=== PATIENT | male | born 1950 | race Caucasian/White ===

== ENCOUNTER 2020-06-16 02:17 | Emergency (ER) | payer MEDICARE, SELFPAY ==
--- NOTE | ~2020-06-16 | CT_ITS ---
EXAMINATION: CT abdomen pelvis w con INDICATION: Upper abdominal pain TECHNIQUE: Computed tomographic images of the abdomen and pelvis were obtained after the administrati on of 100 cc of Omnipaque 350 intravenous contrast. The dose-length product (DLP) was 463.41 mGy-cm. Automated exposure control and iterative reconstruction technique were employed. COMPARISON: 05/29/2017 FINDINGS: Minimal dependent atelectasis is present in the lung bases. The heart size is normal. The l iver, spleen, pancreas, and adrenal glands are normal. Stones are present in the nondistended gallbla dder. The left kidney is unremarkable. The a cyst of the right kidney measures 1.9 cm. There is calci fied atherosclerosis of the aorta and many of the other arteries. No pathologically enlarged abdomina l or pelvic lymph nodes are identified. There is no free intraperitoneal gas or evidence of bowel obs truction. There is mild lumbar spondylosis. There is a tiny fat-containing umbilical hernia. There is moderate enlargement of the prostate. The appendix is normal. IMPRESSION: 1. No CT correlate for the patient's symptoms. 2. Cholelithiasis without evidence of cholecystitis. Reviewed, dictated and finalized at location A. MENDER
[2020-06-16 02:19] VITALS: BP 125/75; PULSE 78; RESP 20; TEMP 36.8; O2SAT 99
[2020-06-16 02:34] VITALS: BP 117/74; PULSE 80; RESP 17; O2SAT 98
--- NOTE | 2020-06-16 02:42 | ECG_ITS ---
Measurements Intervals [place] Rate: 77 P: 43 DE: 153 QRS: 63 QRSD: 99 T: -9 QT: 404 QTc: 458 Interpretive Statements SINUS RHYTHM LOW QRS VOLTAGE IN LIMB LEADS BORDERLINE ST-T WAVE ABNORMALITY- INFERIOR LEADS BORDERLINE ECG Electronically Signed On 06-16-2020 7:05:59 BIOMEDICAL EQUIPMENT TECHNICIAN by Tiburcio Littlejohn D.O.
--- NOTE | 2020-06-16 02:45 | ED.ABDPAIN ---
HPI - Abdominal Pain General Chief Complaint: Abdominal Pain Stated Complaint: upper abd/chest pain Time Seen by Provider: 06/16/20 02:21 Source: patient Mode of arrival: ambulatory Limitations: no limitations History of Present Illness HPI narrative: This patient is a 70 year old male with history of HTN, CAD s/p CABG who presents for evaluation of epigastric abdominal pain. He states this pain has been constant for 2 days but it has gradually worsened. His states he had a cheese burger tonight and his pain has gotten worse since then. He states he took 1 SL nitroglycerin without relief . He states he does not have chest pain but since he wasn't sure he took nitro glycerin. He reports 5 years ago he was have abdominal pain with chest pain and he was found to have a heart attack. HE also reports he was told he has a poor functioning gallbladder. HE denies associated fever, chills, nausea, vomiting or diarrhea. HE also denies dyspnea or chest pain. He also denies having exertional symptoms. HE has not tried anything else for his pain. His pain is 7/10. Radiation: none Migration to: no migration Related Data Allergies Allergy/AdvReac Type Severity Reaction Status Date / Time cefaclor Allergy Unknown Hives Verified 06/16/20 02:25 nortriptyline Allergy Unknown Hives Verified 06/16/20 02:25 Review of Systems Review of Systems: All systems reviewed & are unremarkable except as noted in HPI and below Constitutional: Constitutional: Denies chills and Denies fever(s) Cardiovascular: Cardiovascular: Denies chest pain and Denies radiating jaw, neck or arm pain Respiratory: Respiratory: Denies cough, Denies dyspnea and Denies wheezing Gastrointestinal: Gastrointestinal: Reports abdominal pain, Denies nausea and Denies vomiting Musculoskeletal: Musculoskeletal: Denies back pain COUNTS INCLUDE 234 BEDS AT THE [facility] Past Medical History Medical History (Updated 06/16/20 @ 05:27 by Mya Greer MD) CAD (coronary artery disease) Hypertension Myocardial infarction Surgical History Surgical History (Updated 06/16/20 @ 02:49 by Mya Greer MD) Hx of CABG Family History Family History (Updated 01/29/14 @ 07:13 by DOCTOR UNKNOWN) Father Family history of coronary artery disease Mother Family history of coronary artery disease Social History Social History Smoking status: Never smoker Alcohol intake: never Gender identity (if verbalized by the patient): Male Sexual Orientation (if Verbalized by the Patient): Straight or Heterosexual Exam Narrative: Exam Narrative: GENERAL: Well-appearing, well-nourished, and in no acute distress. HEAD: Normocephalic, atraumatic EYES: PERRLA and EOMI, conjunctiva clear without discharge E THROAT:Mucous membranes moist, Oropharynx normal without erythema, exudate, peritonsillar swelling or fluctuance NECK: Supple, without lymphadenopathy or mass RESPIRATORY: No respiratory distress, Airway patent, Respirations non-labored, Clear to auscultation without rales, rhonchi or wheeze HEART: Regular rate and rhythm. No murmur heard. Normal peripheral pulses. ABDOMEN: Soft, RUQ, epigastric, nondistended, normal active bowel sounds. No masses. No rebound or guarding, No organomegaly. EXTREMITIES: No edema, normal strength with full range of motion. SKIN: Warm, dry, normal color without rash NEURO: Alert and oriented x3. CN 2-12 grossly intact. No focal deficits. PSYCH: Normal mood and affect. Course Reevaluation(s) Reevaluation #1: PAtient reports his pain is still only 1/10. I reviewed CT results showing gallstones but no inflammation. I also discussed enlarged prostate. I discussed that he will need to eat low fat diet. He has mild leukocytosis so will place on antibiotics. I discussed he will need to follow up with surgeon and GI. He denies melena. Date: 06/16/20 Time: 05:20 Vital Signs Vital signs: Vital Signs Temperature 98.2 F 06/16/20 02:19 Pulse Rate 78 06/16
[2020-06-16] MEDS: MORPHINE SULFATE (*CRX) 4 MG/ML INJ 6 MG IV PUSH (02:53)
[2020-06-16] MEDS: ONDANSETRON INJ 4 MG/2 ML VIAL IV PUSH (02:54)
[2020-06-16 03:15] LABS: Basophils Absolute Auto 0.1 K/mm3 (0.0-0.1); Basophils Percent Auto 0.7 % (0.2-1.2); Eosinophils Absolute Auto 0.5 K/mm3 (0-0.3); Eosinophils Percent Auto 3.9 % (0-4.4); Hematocrit 47.2 % (42.0-52.0); Hemoglobin 15.9 g/dL (14.0-18.0); Immature Granulocyte Absolute 0.05 K/mm3 (0.00-0.031); Immature Granulocyte Percent A 0.4 % (0-0.5); Lymphocytes Absolute Auto 3.41 K/mm3 (0.9-3.2); Lymphocytes Percent Auto 28.2 % (18.3-44.2); Mean Corpuscular HGB Conc 33.7 g/dl (32-36); Mean Corpuscular Hemoglobin 27.9 pg (26-34); Mean Platelet Volume 10.7 fl (7.4-10.4); Monocytes Absolute Auto 0.9 K/mm3 (0.1-0.6); Monocytes Percent Auto 7.6 % (2.6-8.5); Neutrophils Absolute Auto 7.2 K/mm3 (1.3-6.7); Neutrophils Percent Auto 59.2 % (45.5-73.1); Platelet Count Result 268 k/mm3 (150-375); Red Blood Count 5.69 M/mm3 (4.6-6.20); Red Cell Distribution Width 13.6 % (11.5-14.5); White Blood Count 12.1 K/mm3 (4.5-10.0)
[2020-06-16 03:21] LABS: Add Urine Microscopic? YES; Appearance Urine Clear (Clear); Bilirubin Urine Negative (Negative); Blood Urine 1+ (Negative); Calcium Oxalate Crystals Urine Present /hpf; Color Urine Yellow (Yellow); Glucose Urine UA Negative (Negative); Ketones Urine Negative (Negative); Leukocyte Esterase Ur Negative LEU/UL (Negative); Mucus Urine Heavy /lpf; Nitrate Urine Negative (Negative); Protein Urine Negative (Negative); Specific Grav Ur 1.028 (1.001-1.035); Urobilinogen Urine Negative mg/dL (<2.0); WBC Urine 0-3 /hpf
[2020-06-16 03:28] LABS: Alanine Aminotransferase 27 U/L (4-50); Alkaline Phosphatase 101 U/L (38-126); Anion Gap 5 mmol/L (8-16); Aspartate Amino Transferase 33 U/L (17-59); Bilirubin,Total 0.5 mg/dL (0.2-1.3); Blood Urea Nitrogen 22 mg/dL (9-20); Calcium 8.8 mg/dL (8.4-10.2); Carbon Dioxide 28 mmol/L (22-30); Chloride 106 mmol/L (98-107); Estimated CRCL calculation 48 ml/min; Estimated Glomerular Filt Rate 60; Glucose 108 mg/dL (75-110); Lipase 166 U/L (23-300); Potassium 4.1 mmol/L (3.4-5.0); Sodium 139 mmol/L (137-145)
[2020-06-16 03:43] LABS: Troponin I < 0.012 ng/mL (0.000-0.034)
[2020-06-16 05:48] VITALS: BP 108/69; PULSE 71; RESP 15; O2SAT 95
== END 2020-06-16 05:50 | disposition home or self-care (01) ==
PROVIDERS: Emergency Provider General Practice; PCP Family Medicine
DX: K80.20 Calculus of gallbladder without cholecystitis without obstruction (principal); I10 Essential (primary) hypertension; I25.10 Atherosclerotic heart disease of native coronary artery without angina pectoris; Z95.1 Presence of aortocoronary bypass graft; I25.2 Old myocardial infarction; R94.31 Abnormal electrocardiogram [ECG] [EKG]
CPT/HCPCS: 36415; 74177; 80053; 81001; 83690; 84484; 85025; 93005; 96374; 96375; 99284; J2270; J2405; Q9967

== ENCOUNTER 2020-09-26 18:13 | Emergency (ER) | payer MEDICARE, SELFPAY ==
--- NOTE | ~2020-09-26 | XR_ITS ---
EXAMINATION: XR chest 2V 09/26/2020 19:12 INDICATION: Epigastric pain with shortness of breath PROCEDURE: PA and lateral views of the chest COMPARISON: Comparison to multiple prior studies sequentially, with oldest reviewed study dated 01/2016. FINDINGS: The lungs are clear. The cardiomediastinal silhouette is within normal limits. There are no pleural effusions. There is no pneumothorax suspected. Status post median sternotomy for CABG. IMPRESSION: 1: NO ACUTE CARDIOPULMONARY DISEASE. Reviewed, dictated and finalized at location A.
--- NOTE | 2020-09-26 18:13 | ECG_ITS ---
Measurements Intervals [place] Rate: 134 P: [place]: 0 QRS: 70 QRSD: 83 T: -4 QT: 304 QTc: 455 Interpretive Statements ATRIAL FIBRILLATION WITH RAPID VENTRICULAR RESPONSE LOW VOLTAGE- LIMB LEADS ABNORMAL ECG Electronically Signed On 09-26-2020 20:12:35 CDT by Tiburcio Littlejohn D.O.
[2020-09-26 18:29] VITALS: BP 124/74; PULSE 132; RESP 18; TEMP 36.6; O2SAT 97
[2020-09-26 19:03] LABS: Basophils Absolute Auto 0.1 K/mm3 (0.0-0.1); Basophils Percent Auto 0.7 % (0.2-1.2); Eosinophils Absolute Auto 0.5 K/mm3 (0-0.3); Eosinophils Percent Auto 3.6 % (0-4.4); Hematocrit 47.3 % (42.0-52.0); Hemoglobin 15.5 g/dL (14.0-18.0); Immature Granulocyte Absolute 0.07 K/mm3 (0.00-0.031); Immature Granulocyte Percent A 0.6 % (0-0.5); Lymphocytes Absolute Auto 3.54 K/mm3 (0.9-3.2); Lymphocytes Percent Auto 28.2 % (18.3-44.2); Mean Corpuscular HGB Conc 32.8 g/dl (32-36); Mean Corpuscular Hemoglobin 27.6 pg (26-34); Mean Corpuscular Volume 84.2 fl (80-100); Mean Platelet Volume 10.4 fl (7.4-10.4); Monocytes Absolute Auto 1.3 K/mm3 (0.1-0.6); Neutrophils Absolute Auto 7.1 K/mm3 (1.3-6.7); Neutrophils Percent Auto 56.9 % (45.5-73.1); Platelet Count Result 261 k/mm3 (150-375); Red Blood Count 5.62 M/mm3 (4.6-6.20); Red Cell Distribution Width 13.7 % (11.5-14.5); White Blood Count 12.5 K/mm3 (4.5-10.0)
[2020-09-26 19:13] LABS: INR 0.9; Partial Thromboplastin Time 31.1 SECONDS (22.3-36.8); Prothrombin Time 12.8 Seconds (11.1-14.7)
[2020-09-26 19:17] LABS: Anion Gap 7 mmol/L (8-16); Blood Urea Nitrogen 23 mg/dL (9-20); Calcium 9.1 mg/dL (8.4-10.2); Carbon Dioxide 28 mmol/L (22-30); Chloride 105 mmol/L (98-107); Estimated CRCL calculation 48 ml/min; Estimated Glomerular Filt Rate 60; Glucose 103 mg/dL (75-110); Potassium 4.1 mmol/L (3.4-5.0); Sodium 140 mmol/L (137-145)
[2020-09-26 19:23] VITALS: BP 130/75; PULSE 118; RESP 22; O2SAT 100
[2020-09-26 19:29] LABS: Troponin I < 0.012 ng/mL (0.000-0.034)
[2020-09-26] MEDS: dilTIAZem HCl INJ 25 MG/5 ML VIAL 15 MG IV PUSH (20:01)
[2020-09-26 20:05] VITALS: BP 108/69; PULSE 103; RESP 17; O2SAT 99
--- NOTE | 2020-09-26 20:18 | PC.NURSE ---
after giving pt cardizem, pt developed red splotches on his right arm that itches. notified. putting in orders for benadryl
[2020-09-26] MEDS: diphenhydrAMINE HCl INJ 50 MG/ML VIAL 25 MG IV PUSH (20:22)
--- NOTE | 2020-09-26 21:15 | ED.CHESTPAIN ---
HPI - Chest Pain General Chief Complaint: Chest Pain Stated Complaint: chest pain Time Seen by Provider: 09/26/20 19:14 History of Present Illness HPI narrative: Patient is a 70-year-old male who presents ER with chest pain. Ongoing for last 2 days. Worse with exertion. Is tightness in the center of his chest. No radiation. Does have history of MT and sees Dr. Hester. Patient is unsure if he has history of arrhythmia but was found to be in A. fib with RVR upon arrival today. No lower extremity swelling. He is not on any blood thinners and only takes a baby aspirin. Patient denies any increased leg swelling or orthopnea. Patient has mild shortness of breath with exertion as well. Related Data Allergies Allergy/AdvReac Type Severity Reaction Status Date / Time cefaclor Allergy Unknown Hives Verified 06/16/20 02:25 nortriptyline Allergy Unknown Hives Verified 06/16/20 02:25 diltiazem [From Cardizem] Allergy Hives Verified 09/26/20 20:19 Review of Systems Review of Systems: All systems reviewed & are unremarkable except as noted in HPI and below Constitutional: Constitutional: Denies chills and Denies fever(s) ENT: Denies nasal congestion and Denies sore throat Cardiovascular: Cardiovascular: Reports chest pain, Denies rapid heart rate and Denies radiating jaw, neck or arm pain Respiratory: Respiratory: Denies cough, Reports dyspnea and Denies wheezing Gastrointestinal: Gastrointestinal: Denies abdominal pain, Denies nausea and Denies vomiting PMFSH Past Medical History Medical History (Updated 09/27/20 @ 00:37 by Rajinder Martinez MD) BPH with obstruction/lower urinary tract symptoms CAD (coronary artery disease) Hypertension Hypertensive heart disease without congestive heart failure Mixed hyperlipidemia Myocardial infarction Surgical History Surgical History (Updated 08/26/20 @ 15:31 by Quirino Recio MD) History of cholecystectomy Hx of CABG Family History Family History (Updated 01/29/14 @ 07:13 by DOCTOR UNKNOWN) Father Family history of coronary artery disease Mother Family history of coronary artery disease Social History Social History Smoking status: Never smoker Alcohol intake: never Gender identity (if verbalized by the patient): Male Exam Narrative: Exam Narrative: GENERAL: Well-appearing, well-nourished, and in no acute distress. HEAD: Normocephalic, atraumatic. ENT: Mucous membranes moist. CHEST: Clear to auscultation. No respiratory distress. HEART: Irregular regular rate and rhythm that is tachycardic. Normal peripheral pulses. ABDOMEN: Soft, nontender, nondistended. EXTREMITIES: Normal range of motion. 2+ edema. SKIN: Warm, dry, no rash. NEURO: Alert and oriented x3. PSYCH: Normal mood and affect. Course Course Emergency Course: To set troponin negative. Discussed with Dr. Mendoza who stated that patient second troponin is negative he can go home with Eliqubrie since patient converted from A. fib to normal sinus after receiving diltiazem. Unfortunately patient did have a rash after the diltiazem so that was added to his allergy list. Patient can continue his home metoprolol and understands he should contact his security operations center analyst in the morning. Vital Signs Vital signs: Vital Signs Temperature 97.9 F 09/26/20 18:29 Pulse Rate 132 H 09/26/20 18:29 Respiratory Rate 18 09/26/20 18:29 Blood Pressure 124/74 09/26/20 18:29 Pulse Oximetry 97 09/26/20 18:29 Temperature 97.9 F 09/26/20 18:29 Pulse Rate 79 09/26/20 23:01 Respiratory Rate 18 09/26/20 23:01 Blood Pressure 121/73 09/26/20 23:01 Pulse Oximetry 99 09/26/20 23:01 MDM - Chest Pain Lab Data Result diagrams: 09/26/20 18:41 09/26/20 18:41 Labs: Lab Results 09/26/20 09/26/20 09/26/20 Range/Units 18:41 18:41 18:41 WBC 12.5 H (4.5-10.0) K/mm3 RBC 5.62 (4.6-6.20) M/mm3 Hgb 15.5 (14.0-18.0) g/dL Hct 47.3 (42.0-52.0) % M
[2020-09-26 21:35] VITALS: BP 124/78; PULSE 80; PULSE 85; RESP 18; O2SAT 99
--- NOTE | 2020-09-26 21:35 | ECG_ITS ---
Measurements Intervals [place] Rate: 84 P: 28 [place]: 155 QRS: 71 QRSD: 92 T: 28 QT: 375 QTc: 443 Interpretive Statements SINUS RHYTHM BORDERLINE T WAVE ABNORMALITY- INFERIOR LEADS BORDERLINE ECG Electronically Signed On 09-27-2020 6:55:13 CDT by Tiburcio Littlejohn D.O.
[2020-09-26 22:08] LABS: Troponin I < 0.012 ng/mL (0.000-0.034)
[2020-09-26] MEDS: APIXABAN 5 MG TABLET PO (22:18)
[2020-09-26 23:01] VITALS: BP 121/73; PULSE 79; RESP 18; O2SAT 99
== END 2020-09-26 23:02 | disposition home or self-care (01) ==
PROVIDERS: Emergency Provider Emergency Medicine; PCP Family Medicine
DX: I48.91 Unspecified atrial fibrillation (principal); I25.2 Old myocardial infarction; I25.10 Atherosclerotic heart disease of native coronary artery without angina pectoris; I11.9 Hypertensive heart disease without heart failure; E78.2 Mixed hyperlipidemia; N40.0 Benign prostatic hyperplasia without lower urinary tract symptoms; Z95.1 Presence of aortocoronary bypass graft; L27.0 Generalized skin eruption due to drugs and medicaments taken internally; T46.1X5A Adverse effect of calcium-channel blockers, initial encounter; R94.31 Abnormal electrocardiogram [ECG] [EKG]
CPT/HCPCS: 36415; 71046; 80048; 84484; 85025; 85610; 85730; 93005; 96374; 96375; 99284; A9270; J1200

== ENCOUNTER 2021-06-07 12:24 | Outpatient (CLI) | payer MEDICARE, SELFPAY ==
--- NOTE | ~2021-06-07 | CT_ITS ---
EXAMINATION: CT abdomen pelvis wo con DATE: 06/07/2021 12:40 INDICATION: Chronic kidney disease TECHNIQUE: Computed tomography (CT) of the abdomen and pelvis was performed without intravenous contr ast. Automated exposure control and iterative reconstruction technique were employed. Exam dose: 400 .38 mGy-cm total exam DLP. COMPARISON: 06/16/2020 CT abdomen pelvis FINDINGS: Status post sternotomy and coronary bypass graft surgery. Normal heart size. Coronary calci fication. No pericardial or pleural effusion. The lung bases are clear of infiltrate or consolidation. Status post cholecystectomy. No bile duct or pancreatic duct dilatation. The liver, spleen, pancreas, and adrenal glands The stable 1.9 cm mid right renal cyst is demonstrated to better advantage on the 06/16/2020 CT examin ation with IV contrast material. No other renal mass lesion is evident on this limited noncontrast ex amination. No urinary tract calculus or hydroureteronephrosis. There is atherosclerotic calcification but normal caliber of the abdominal aorta. No intraperitoneal or retroperitoneal or pelvic mass lesion or adenopathy or ascites is noted. There is prostate enlargement and calcification. There is moderate diffuse thickening of the urinary bladder wall, likely secondary to prostate enlargement. Normal appendix. There is diverticulosis of the colon; no CT evidence of diverticulitis. No bowel obs truction, bowel wall thickening, pneumatosis or intraperitoneal free air is detected. There is degenerative disc disease in the lower thoracic spine. Grade 1 anterolisthesis at L4-5 due to degenerative change at the apophyseal joints. No suspicious osteolytic or osteoblastic lesions. IMPRESSION: Status post sternotomy and CABG Status post cholecystectomy Stable 1.9 cm right renal cyst No urinary tract calculus or hydroureteronephrosis Prostate enlargement and calcification, associated moderate bladder wall thickening Diverticulosis of the colon; no CT evidence of diverticulitis Reviewed, dictated and finalized at Location A. Reviewed, dictated and finalized at location A. RAPHIC ANALYST IMPRESSION: Status post sternotomy and CABG Status post cholecystectomy Stable 1.9 cm right renal cyst No urinary tract calculus or hydroureteronephrosis Prostate enlargement and calcification, associated moderate bladder wall thicke kevon Diverticulosis of the colon; no CT evidence of diverticulitis
== END 2021-06-07 12:25 | disposition home or self-care (01) ==
LOC: ANHIMG 12:29
PROVIDERS: PCP Family Medicine; Visit Provider Family Medicine
DX: N18.9 Chronic kidney disease, unspecified (principal); Z95.1 Presence of aortocoronary bypass graft; Z90.49 Acquired absence of other specified parts of digestive tract; N40.0 Benign prostatic hyperplasia without lower urinary tract symptoms; R93.41 Abnormal radiologic findings on diagnostic imaging of renal pelvis, ureter, or bladder; K57.90 Diverticulosis of intestine, part unspecified, without perforation or abscess without bleeding
CPT/HCPCS: 74176

== ENCOUNTER 2021-06-20 12:35 | Outpatient (CLI) | payer MEDICARE, SELFPAY ==
[2021-06-20 13:34] LABS: Add Urine Microscopic? YES; Appearance Urine Clear (Clear); Bilirubin Urine Negative (Negative); Blood Urine 1+ (Negative); Color Urine Yellow (Yellow); Glucose Urine UA Negative (Negative); Ketones Urine Negative (Negative); Leukocyte Esterase Ur Negative LEU/UL (NEGATIVE); Mucus Urine Heavy /lpf; Nitrate Urine Negative (Negative); Protein Urine Negative (Negative); Specific Grav Ur 1.027 (1.001-1.035); Squamous Epithelial Cell Urine Rare /hpf (Few); WBC Urine 0-3 /hpf (0-3)
== END 2021-06-20 12:36 | disposition home or self-care (01) ==
LOC: ANHLAB 12:37
PROVIDERS: PCP Family Medicine; Visit Provider Family Medicine
DX: N39.0 Urinary tract infection, site not specified (principal)
CPT/HCPCS: 81001; 87086

== ENCOUNTER 2023-04-13 13:49 | Outpatient (CLI) | payer MEDICARE, SELFPAY ==
--- NOTE | ~2023-04-13 | XR_ITS ---
EXAMINATION: XR chest 2V DATE: 04/13/2023 14:18 INDICATION: Cough and congestion TECHNIQUE: PA and lateral views of the chest are obtained. COMPARISON: 09/26/2020 FINDINGS: The lungs are free of acute opacities. No pleural effusion or pneumothorax. Median sternoto my wires and mediastinal surgical clips are seen, likely from prior coronary artery bypass grafting. Surgical clips in the right upper quadrant are likely from prior cholecystectomy. There is chronic mi ld anterior wedging of multiple lower thoracic vertebral bodies. There is moderate thoracic spondylos is. IMPRESSION: 1. No acute cardiopulmonary abnormality. Reviewed, dictated and finalized at location B. RIDGE LOADING OPERATOR
== END 2023-04-13 13:50 | disposition home or self-care (01) ==
PROVIDERS: PCP Family Medicine; Visit Provider Physician Assistant
DX: R06.02 Shortness of breath (principal)
CPT/HCPCS: 71046

== ENCOUNTER 2024-05-31 15:27 | Emergency (ER) | payer MEDICARE, SELFPAY ==
--- NOTE | ~2024-05-31 | XR_ITS ---
XR chest 2V Ordering provider: Israel Silva MD History: 74 years Male with . chest pain . Comparison: April 13, 2023 FINDINGS: MEDIASTINUM: The cardiac silhouette is not enlarged. Postoperative changes in the mediastinum. LUNGS: No infiltrates, effusions or pneumothorax. Prominent bronchovascular markings in the lower lobes which may indicate atelectasis. OTHER: No free air under the diaphragm. IMPRESSION: Prominent bronchovascular markings in the lower lobes which may indicate atelectasis. Clinical correl ation advised. Reviewed, dictated and finalized at location A. ETING RESEARCH INTERN IMPRESSION: Prominent bronchovascular markings in the lower lobes which may indicate atelec tasis. Clinical correlation advised.
--- NOTE | 2024-05-31 15:39 | ECG_ITS ---
Test Date: 2024-05-31 15:44:26 Measurements Intervals [place] Rate: 69 P: 21 [place]: 159 QRS: 128 QRSD: 93 T: 36 QT: 401 QTc: 431 Interpretive Statements SINUS RHYTHM INDETERMINATE AXIS POSSIBLE RIGHT VENTRICULAR HYPERTROPHY [SOME/ALL OF: PROMINENT R IN V1, LATE TRANSITION, RAD, ESTEPHANIA, SSS] NONSPECIFIC T-WAVE ABNORMALITY ABNORMAL ECG Electronically Signed On 06-01-2024 08:49:30 HOSPICE CARE CONSULTANT by Anthony Mendoza M.D.
[2024-05-31 15:40] VITALS: BP 137/68; PULSE 66; RESP 15; TEMP 36.6; O2SAT 99
[2024-05-31 15:56] LABS: Basophils Absolute Auto 0.1 K/mm3 (0.0-0.1); Basophils Percent Auto 0.7 % (0.2-1.2); Eosinophils Absolute Auto 0.3 K/mm3 (0-0.3); Eosinophils Percent Auto 2.8 % (0-4.4); Hematocrit 44.7 % (42.0-52.0); Hemoglobin 14.9 g/dL (14.0-18.0); Immature Granulocyte Absolute 0.06 K/mm3 (0.00-0.031); Immature Granulocyte Percent A 0.6 % (0-0.5); Lymphocytes Absolute Auto 2.99 K/mm3 (0.9-3.2); Lymphocytes Percent Auto 28.3 % (18.3-44.2); Mean Corpuscular HGB Conc 33.3 g/dl (32-36); Mean Corpuscular Hemoglobin 27.5 pg (26-34); Mean Corpuscular Volume 82.5 fl (80-100); Mean Platelet Volume 10.2 fl (7.4-10.4); Monocytes Absolute Auto 0.6 K/mm3 (0.1-0.6); Monocytes Percent Auto 5.8 % (2.6-8.5); Neutrophils Absolute Auto 6.5 K/mm3 (1.3-6.7); Neutrophils Percent Auto 61.8 % (45.5-73.1); Platelet Count Result 254 k/mm3 (150-375); Red Blood Count 5.42 M/mm3 (4.6-6.20); Red Cell Distribution Width 13.5 % (11.5-14.5); White Blood Count 10.6 K/mm3 (4.5-10.0)
[2024-05-31 16:06] LABS: Alanine Aminotransferase 33 U/L (6-50); Alkaline Phosphatase 125 U/L (38-126); Anion Gap 1 mmol/L (4-12); Aspartate Amino Transferase 28 U/L (17-59); Bilirubin,Total 0.7 mg/dL (0.2-1.3); Blood Urea Nitrogen 24 mg/dL (9-20); Calcium 8.9 mg/dL (8.4-10.2); Carbon Dioxide 28 mmol/L (22-30); Chloride 107 mmol/L (98-107); Estimated CRCL calculation 50 ml/min; Estimated Glomerular Filt Rate > 60; Glucose 102 mg/dL (65-110); Lipase 211 U/L (23-300); Potassium 4.8 mmol/L (3.4-5.0); Sodium 136 mmol/L (137-145)
[2024-05-31 16:09] LABS: INR 1.3; Prothrombin Time 16.2 Seconds (11.1-14.7)
[2024-05-31 16:10] LABS: Partial Thromboplastin Time 34.9 Seconds (22.3-36.8)
[2024-05-31 16:17] LABS: Troponin I < 0.012 ng/mL (0.000-0.034)
[2024-05-31 17:17] VITALS: BP 143/79; PULSE 60; RESP 15; O2SAT 99
--- NOTE | 2024-05-31 17:34 | ED.GENADULT ---
HPI - General Adult General Chief complaint: Chest Pain Stated complaint: epigastric pain x1h Time Seen by Provider: 05/31/24 16:58 History of Present Illness HPI narrative: 74-year-old male presents emergency department for evaluation for epigastric pain that radiates into his chest. Patient states the symptoms started approximately 12 30. Patient felt that this was reminiscent of his previous heart attack. Patient states the pain was a pressure and his abdomen and a burning sensation radiating up to his chest. Patient denied any radiation to his jaw back or arm. Patient denies any associated diaphoresis. Patient did take Tums and this did not help his symptoms. Patient states he had a heart attack in 2016 and patient did have a subsequent nuclear stress test approximately 3-4 years ago. Related Data Home Medications ?Medication ?Instructions ?Recorded ?Confirmed ?Last Taken ?Type finasteride 1 mg tablet 1 mg PO DAILY 09/20/21 05/07/24 Unknown History metoprolol tartrate 25 mg tablet 25 mg PO BID 09/20/21 05/07/24 Unknown History rivaroxaban 20 mg tablet (Xarelto) 20 mg PO DAILY 09/20/21 05/07/24 Unknown History Allergies Allergy/AdvReac Type Severity Reaction Status Date / Time cefaclor Allergy Unknown Hives Verified 05/31/24 17:22 nortriptyline Allergy Unknown Hives Verified 05/31/24 17:22 diltiazem (From Cardizem) Allergy Hives Verified 05/31/24 17:22 Review of Systems Review of Systems: All systems reviewed & are unremarkable except as noted in HPI and below PMFSH Past Medical History Medical History BPH with obstruction/lower urinary tract symptoms CAD (coronary artery disease) Hypertension Hypertensive heart disease without congestive heart failure Mixed hyperlipidemia Myocardial infarction Overweight Paroxysmal A-fib Surgical History Surgical History History of cholecystectomy Hx of CABG Family History Family History Father Family history of coronary artery disease Mother Family history of coronary artery disease Social History Social History Smoking status: Never smoker Second hand tobacco smoke exposure: No Alcohol intake: never Substance use: never Substance use type: does not use Living arrangements: with family Occupation/Education: retired Gender identity (if verbalized by the patient): Male Sexual Orientation (if Verbalized by the Patient): Straight or Heterosexual Exam Narrative: APPEARANCE: Well appearing, no pain, no distress, well-nourished. HEAD: normocephalic, atraumatic. EYES: PERRLA/EOMI, conjunctivae clear. NOSE: Normal no drainage EARS:TMS clear with good light reflex. THROAT: Pharynx clear, no exudate. NECK: Supple. No adenopathy, no masses. RESPIRATORY: Airway patent, respirations nonlabored. Clear to auscultation bilaterally, no rales, rhonchi, wheezing. CARDIOVASCULAR: Regular rate and rhythm without murmurs rubs or gallops. ABDOMINAL: Soft, nontender, nondistended, normal bowel sounds MUSCULOSKELETAL: Moves all extremities. Strength/ROM intact, No edema, No calf tenderness. NEURO: Alert. Cranial nerves II through XII intact. SKIN: Warm, dry. Normal Color Course Vital Signs Vital signs: Vital Signs Temperature 97.8 F 05/31/24 15:40 Pulse Rate 66 05/31/24 15:40 Respiratory Rate 15 05/31/24 15:40 Blood Pressure 137/68 05/31/24 15:40 Pulse Oximetry 99 05/31/24 15:40 Oxygen Delivery Room Air 05/31/24 15:40 Temperature 97.8 F 05/31/24 15:40 Pulse Rate 65 05/31/24 18:32 Respiratory Rate 20 05/31/24 18:32 Blood Pressure 148/91 H 05/31/24 18:32 Pulse Oximetry 99 05/31/24 18:32 Oxygen Delivery Room Air 05/31/24 17:19 Medical Decision Making [facility] Narrative Medical decision making narrative: 74-year-old male presenting emergency department for evaluation for episode of chest pain. Patient felt that the pain was caused by diet. Patient had negative serial troponins and negative EKGs. Patient was pain-free during her stay in the emergency department. Patient was afebrile but does have a leukocytosis of 10.6 and hemoglobin of 14.9. No acute abnormalities on the CMP lipase was negative chest x-ray shows atelectasis. Patient was offered admission for further cardiac rule out but patient declined. Patient prefers to have outpatient follow-up. Patient family were encouraged to give their union organizer on-call to schedule follow-up and they were also educated on the importance of returning to the emergency department if the patient had any worsening symptoms. Was provided omeprazole to help with stomach acid if this was more GI related secondary to his food consumption. Differential Diagnosis Differential Diagnosis: Gastritis, nausea, vomiting, ACS Vital Signs Vital Signs: Vital Signs Temperature 97.8 F 05/31/24 15:40 Pulse Rate 66 05/31/24 15:40 Respiratory Rate 15 05/31/24 15:40 Blood Pressure 137/68 05/31/24 15:40 Pulse Oximetry 99 05/31/24 15:40 Oxygen Delivery Room Air 05/31/24 15:40 Temperature 97.8 F 05/31/24 15:40 Pulse Rate 65 05/31/24 18:32 Respiratory Rate 20 05/31/24 18:32 Blood Pressure 148/91 H 05/31/24 18:32 Pulse Oximetry 99 05/31/24 18:32 Oxygen Delivery Room Air 05/31/24 17:19 Lab Data Lab results reviewed: Yes I reviewed the patient's lab results. 05/31/24 15:49 05/31/24 15:49 Labs: Lab Results 05/31/24 05/31/24 Range/Units 15:49 18:41 WBC 10.6 H (4.5-10.0) K/mm3 RBC 5.42 (4.6-6.20) M/mm3 Hgb 14.9 (14.0-18.0) g/dL Hct 44.7 (42.0-52.0) % MCV 82.5 (80-100) fl MCH 27.5 (26-34) pg MCHC 33.3 (32-36) g/dl RDW 13.5 (11.5-14.5) % Plt Count 254 (150-375) k/mm3 MPV 10.2 (7.4-10.4) fl Immature Gran % (Auto) 0.6 H (0-0.5) % Neut % (Auto) 61.8 (45.5-73.1) % Lymph % (Auto) 28.3 (18.3-44.2) % Luce % (Auto) 5.8 (2.6-8.5) % Eos % (Auto) 2.8 (0-4.4) % Baso % (Auto) 0.7 (0.2-1.2) % Lymph # (Auto) 2.99 (0.9-3.2) K/mm3 Luce # (Auto) 0.6 (0.1-0.6) K/mm3 Eos # (Auto) 0.3 (0-0.3) K/mm3 Baso # (Auto) 0.1 (0.0-0.1) K/mm3 Abs Immat Gran (auto) 0.06 H (0.00-0.031) K/mm3 Absolute Neuts (auto) 6.5 (1.3-6.7) K/mm3 Absolute Nucleated RBC 0.000 (0.0-0.012) K/mm3 Nucleated RBC % 0.0 (0.0-0.2) % PT 16.2 H (11.1-14.7) Seconds INR 1.3 APTT 34.9 (22.3-36.8) Seconds Sodium 136 L (137-145) mmol/L Potassium 4.8 (3.4-5.0) mmol/L Chloride 107 (98-107) mmol/L Carbon Dioxide 28 (22-30) mmol/L Anion Gap 1 L (4-12) mmol/L BUN 24 H (9-20) mg/dL Creatinine 1.10 (0.7-1.3) mg/dL Estim Creat Clear Calc 50 ml/min Estimated GFR > 60 (59 - ) Glucose 102 (65-110) mg/dL Calcium 8.9 (8.4-10.2) mg/dL Total Bilirubin 0.7 (0.2-1.3) mg/dL AST 28 (17-59) U/L ALT 33 (6-50) U/L Alkaline Phosphatase 125 (38-126) U/L Troponin I < 0.012 < 0.012 (0.000-0.034) ng/mL Total Protein 7.0 (6.3-8.2) g/dL Albumin 4.0 (3.5-5.1) g/dL Lipase 211 (23-300) U/L Discharge Plan Discharge Clinical Impression: Chest pain Patient Disposition: Home, Self-Care Condition: Stable Instructions: Antibiotic Form, Chest Pain (ED) Additional Instructions: You were offered admission for further cardiac rule out but you declined and preferred to be discharged home. If you have any worsening symptoms then please call or return to the emergency department. Omeprazole as directed for the next 14 days. Patient Language: Luxembourger Prescriptions: New omeprazole 20 mg capsule,delayed release(DR/EC) 20 mg PO DAILY 14 Days Qty: 14 0RF No Action atorvastatin 80 mg tablet 80 mg PO DAILY Qty: 90 3RF Xarelto 20 mg tablet 20 mg PO DAILY Rx Instructions: must administer with evening meal finasteride 1 mg tablet 1 mg PO DAILY metoprolol tartrate 25 mg tablet 25 mg PO BID Follow-up/Referrals: Quirino Recio MD [Primary Care Provider] - Quality HEART score for chest pain patients History: slightly suspicious ECG: normal Age: > or = to 65 years Risk factors: > or = to 3 risk factors of atherosclerotic disease Troponin: < or = to 1x normal limit Heart score: 4
[2024-05-31 18:01] VITALS: BP 134/75; PULSE 62; RESP 19; O2SAT 98
[2024-05-31 18:19] VITALS: BP 145/83; PULSE 59; RESP 18; O2SAT 99
[2024-05-31 18:32] VITALS: BP 148/91; PULSE 65; RESP 20; O2SAT 99
--- NOTE | 2024-05-31 18:39 | ECG_ITS ---
Test Date: 2024-05-31 18:39:13 Measurements Intervals [place] Rate: 58 P: 29 ID: [id number] QRS: 86 QRSD: 98 T: 62 QT: 430 QTc: 426 Interpretive Statements SINUS BRADYCARDIA NONSPECIFIC T-WAVE ABNORMALITY ABNORMAL ECG Electronically Signed On 06-01-2024 08:56:52 TARE WEIGHER by Anthony Mendoza M.D.
[2024-05-31 19:10] LABS: Troponin I < 0.012 ng/mL (0.000-0.034)
== END 2024-05-31 19:47 | disposition home or self-care (01) ==
PROVIDERS: Emergency Medicine; Emergency Provider Emergency Medicine; PCP Family Medicine
DX: R07.9 Chest pain, unspecified (principal); I25.2 Old myocardial infarction; I25.10 Atherosclerotic heart disease of native coronary artery without angina pectoris; I11.9 Hypertensive heart disease without heart failure; I48.0 Paroxysmal atrial fibrillation; E78.2 Mixed hyperlipidemia; N40.1 Benign prostatic hyperplasia with lower urinary tract symptoms; E66.3 Overweight; Z68.27 Body mass index [BMI] 27.0-27.9, adult; Z95.1 Presence of aortocoronary bypass graft; Z90.49 Acquired absence of other specified parts of digestive tract; Z79.01 Long term (current) use of anticoagulants; Z79.899 Other long term (current) drug therapy; R00.1 Bradycardia, unspecified; R94.31 Abnormal electrocardiogram [ECG] [EKG]
CPT/HCPCS: 36415; 71046; 80053; 83690; 84484; 85025; 85610; 85730; 93005; 99284

== ENCOUNTER 2024-06-22 10:03 | Emergency (ER) | payer MEDICARE, SELFPAY ==
[2024-06-22 10:07] VITALS: BP 149/80; PULSE 74; RESP 14; TEMP 36.5; O2SAT 96
--- NOTE | 2024-06-22 12:57 | ED.MALEGU ---
HPI - Male Genitourinary General Chief complaint: Urogenital-Male Stated complaint: prostatectomy, catheter leaking Time Seen by Provider: 06/22/24 10:50 Source: patient Mode of arrival: ambulatory Limitations: no limitations History of Present Illness HPI Narrative: This is a 74-year-old male, with history of prostate cancer, status post prostatectomy 4 days ago, who presents emergency department complaining of leaking around his catheter. The patient states he had procedure done at [facility]. He denies significant pain, fevers, chills or flank pain. He states he had to have the catheter flushed during his admission but has otherwise had no issues. He has no complaints at this time. Related Data Home Medications ?Medication ?Instructions ?Recorded ?Confirmed ?Last Taken ?Type finasteride 1 mg tablet 1 mg PO DAILY 09/20/21 05/07/24 Unknown History metoprolol tartrate 25 mg tablet 25 mg PO BID 09/20/21 05/07/24 Unknown History rivaroxaban 20 mg tablet (Xarelto) 20 mg PO DAILY 09/20/21 05/07/24 Unknown History Allergies Allergy/AdvReac Type Severity Reaction Status Date / Time cefaclor Allergy Unknown Hives Verified 06/22/24 11:34 nortriptyline Allergy Unknown Hives Verified 06/22/24 11:34 diltiazem (From Cardizem) Allergy Hives Verified 06/22/24 11:34 Review of Systems Review of Systems: All systems reviewed & are unremarkable except as noted in HPI and below PMFSH Past Medical History Medical History Prostate cancer Overweight Paroxysmal A-fib BPH with obstruction/lower urinary tract symptoms Hypertensive heart disease without congestive heart failure Mixed hyperlipidemia Myocardial infarction CAD (coronary artery disease) Hypertension Surgical History Surgical History History of prostatectomy History of cholecystectomy Hx of CABG Family History Family History Father Family history of coronary artery disease Mother Family history of coronary artery disease Social History Social History Smoking status: Never smoker Second hand tobacco smoke exposure: No Alcohol intake: never Substance use: never Substance use type: does not use Living arrangements: with family Occupation/Education: retired Gender identity (if verbalized by the patient): Male Sexual Orientation (if Verbalized by the Patient): Straight or Heterosexual Exam Narrative: GENERAL: Well-developed, well-nourished, and in no acute distress. HEAD: Normocephalic, atraumatic. EYES: PERRLA and EOMI. CHEST: Clear to auscultation. No respiratory distress. No wheezes rales or rhonchi HEART: Regular rate and rhythm. No murmur heard. Normal peripheral pulses. ABDOMEN: Soft, nontender, nondistended, normal active bowel sounds. : A Keith catheter is in place draining red-tinged urine with small amounts of sediment. There is no active bleeding noted at the urethral meatus SKIN: Warm, dry, no rash. NEURO: Alert and oriented x3. No focal deficit. Moving all 4 limbs spontaneously PSYCH: Normal mood and affect. Course Course Emergency Course: 12:45 - Bedside ultrasound by me shows Keith catheter tip in bold in appropriate position. Bladder scan showed less than 5mL in the patient's bladder. Nursing staff flushed the catheter without difficulty with appropriate urine drainage afterwards. I suspect the catheter may have been briefly blocked by a small blood clot. Will discharge with recommendation for urology follow-up as scheduled. I discussed the findings and recommendations with the patient and his sons. Discussed return and emergency precautions including signs/symptoms of acute abdomen, UTI and pyelonephritis. The patient voiced understanding and agreement with the plan. All questions answered to his satisfaction. Vital Signs Vital signs: Vital Signs Temperature 97.7 F 06/22/24 10:07 Pulse Rate 74 06/22/24 10:07 Respiratory Rate 14 06/22/24 10:07 Blood Pressure 149/80 H 06/22/24 10:07 Pulse Oximetry 96 06/22/24 10:07 Oxygen Delivery Room Air 06/22/24 10:07 Temperature 97.7 F 06/22/24 10:07 Pulse Rate 74 06/22/24 10:07 Respiratory Rate 14 06/22/24 10:07 Blood Pressure 149/80 H 06/22/24 10:07 Pulse Oximetry 96 06/22/24 10:07 Oxygen Delivery Room Air 06/22/24 10:07 MDM - Male Genitourinary MDM Narrative Medical decision making narrative: Plan: Catheter flushing, bedside ultrasound, reassess Differential Diagnosis Differential diagnosis: Likely acute retention of urine and other (Keith catheter malfunction, hematuria, other) Discharge Plan Discharge Clinical Impression: Leakage from urinary catheter Qualifiers: Encounter type: initial encounter Qualified Code(s): T83.038A - Leakage of other urinary catheter, initial encounter Hematuria Qualifiers: Hematuria type: gross Qualified Code(s): R31.0 - Gross hematuria Patient Disposition: Home, Self-Care Condition: Stable Instructions: Antibiotic Form, Keith Catheter Placement and Care (ED) Additional Instructions: You were seen in the emergency department. Your catheter was flushed. An ultrasound shows it to be in adequate position and appears to be draining appropriately. I recommend following up with your urologist as scheduled. If you develop fevers with abdominal pain, severe abdominal pain, flank pain, or if you have other emergent concerns for life, limb, or eyesight, return to the emergency department. Patient Language: [place] Prescriptions: No Action atorvastatin 80 mg tablet 80 mg PO DAILY Qty: 90 3RF Xarelto 20 mg tablet 20 mg PO DAILY Rx Instructions: must administer with evening meal finasteride 1 mg tablet 1 mg PO DAILY metoprolol tartrate 25 mg tablet 25 mg PO BID omeprazole 20 mg capsule,delayed release(DR/EC) 20 mg PO DAILY 14 Days Qty: 14 0RF Follow-up/Referrals: Quirino Recio MD [Primary Care Provider] - 2 Weeks Time of Disposition: 12:59
--- OUTSIDE RECORDS SUMMARY | 2024-06-26 10:11 | XMS_ITS | Clinical Summary ---
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 [employer] Gender Identity Not on file Sexual Orientation Not on file Plan of Treatment Health Maintenance Due Date Last Done Comments Hepatitis C Virus (HCV) Screening 1950 TdaP Immunization 1950 Colonoscopy 01/28/1996 Colorectal Cancer Screening 01/28/1996 Cologuard 2001 Immunochemical Fecal Occult Blood 2001 Zoster Immunization (1 of 2) 2001 Pneumococcal Immunization (50+ years) (2 of 2 - PPSV23) 03/14/2020 03/14/2019 Influenza Immunization (#1) 02/03/202403/04, 03/17/2018, 07/12/2017, Additional history exists SARS-COV-2 Immunization ( - season) 2024 Respiratory Syncytial Virus (RSV) Immunization (Adult) (1 - 1-dose 75+ series) 2026 Pneumococcal Immunization Combined Discontinued 03/14/2019 Hepatitis B Immunization Aged Out No longer eligible based on patient's age to complete this topic Meningococcal Immunization (ACWY) Aged Out No longer eligible based on patient's age to complete this topic Rotavirus Immunization Aged Out No lo nger eligible based on patient's age to complete this topic
--- OUTSIDE RECORDS SUMMARY | 2024-06-26 10:13 | XMS_ITS | Referral Summary ---
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 Name Role Phone Quirino Recio MD Primary Care Provider Carlos Mari MD Unavailable Anthony Espinosa MD Unavailable [phone] Encounters Date Type Department Care Team Description 06/23/2024 Telephone [facility] Cardiology [address] [place] [address] Leandro Hester MD 06/19/2024 5:34 AM BEHAVIORAL INTERVENTION SPECIALIST - 06/20/2024 3:39 PM BEHAVIORAL INTERVENTION SPECIALIST Hospital Encounter [address] [address] Anthony Espinosa MD Malignant neoplasm prostate (HCC) Discharge Disposition: Discharge to home or self care 06/19/2024 7:30 AM BEHAVIORAL INTERVENTION SPECIALIST - 06/19/2024 11:30 AM BEHAVIORAL INTERVENTION SPECIALIST Surgery [facility] [address] [place] [phone] Anthony Espinosa MD Robotic Assisted Prostatectomy, Bilateral Lymph Node Dissection 06/19/2024 7:30 AM BEHAVIORAL INTERVENTION SPECIALIST Anesthesia Event [facility] [address] [place] [phone] David Cain MD Thompson, Kathryn Ann, PA 06/12/2024 10:08 AM BEHAVIORAL INTERVENTION SPECIALIST - 06/12/2024 11:59 PM BEHAVIORAL INTERVENTION SPECIALIST Hospital Encounter [facility] [address] [facility] [address] [place] [address] Preoperative examination Discharge Disposition: Discharge to home or self care 06/12/2024 10:15 AM BEHAVIORAL INTERVENTION SPECIALIST Pre-Admission Testing [facility] [address] [place] [address] Preoperative examination (Primary Dx); Malignant neoplasm prostate (HCC) 06/11/2024 1:00 PM BEHAVIORAL INTERVENTION SPECIALIST Office Visit [facility] Cardiology [address] [place] [address] Leandro Hester MD Preop cardiovascular exam (Primary Dx); Coronary artery disease involving cherokee coronary artery of cherokee heart without angina pectoris; S/P CABG x 5; PAF (paroxysmal atrial fibrillation) (CMS/HCC) (HCC); Chronic anticoagulation; Essential hypertension; Lipid screening from Last 3 Months Allergies Active Allergy Reactions Criticality Noted Date Comments Diltiazem Hives Medium 09/28/2020 cardizem IV given for AF w/ RVR and pt broke out in hives on the arm the IV was in Cefaclor Hives Medium Hay Fever And Allergy Relief Rhinitis Low 07/21/2020 Medications multivitamin tabletIndicatio ns:Vitamin Deficiency Prevention Take 1 tablet by mouth every morning Active cetirizine (ZyrTEC) 10 mg tablet Take 1 tablet (10 mg total) by mouth as needed for allergies Active ibuprofen (ADVIL,MOTRIN) 200 mg tab/cap Take 1 tablet/capsu le (200 mg total) by mouth every 6 (six) hours as needed for pain Active omeprazole (PriLOSEC) 20 mg capsule Take 1 capsule (20 mg total) by mouth every morning 06/01/20 24 Active aspirin 81 mg enteric coated tablet Take 1 tablet (81 mg total) by mouth every morning Active atorvastatin (LIPITOR) 80 mg tablet Take 1 tablet (80 mg total) by mouth nightly Active finasteride (PROSCAR) 5 mg tablet Take 1 tablet (5 mg total) by mouth nightly Active metoprolol tartrate (LOPRESSOR) 25 mg immediate release tablet Take 1 tablet (25 mg total) by mouth 2 (two) times a day Active ubidecarenone (COQ-10 ORAL) Take 1 tablet/capsu le by mouth every morning Active cholecalciferol , vitamin D3, (VITAMIN D3 ORAL) Take 1 tablet/capsu le by mouth as needed Active diphenhydrAMINE 25 mg capsule Take 1 tablet/capsu le (25 mg total) by mouth nightly as needed for itching Active HYDROcodone-neli taminophen (NORCO) 5-325 mg per tabletIndicatio ns:Pain Take 1-2 tablets by mouth every 4 (four) hours as needed for pain 12 tablet 06/20/19 25 Active omega-3/dha/epa /dpa/fish oil (OMEGA-3 2100 ORAL) Take 1 capsule by mouth as needed 025 Discontinued(Er ror) aspirin 81 mg enteric coated tablet Take 1 tablet (81 mg total) by mouth daily 30 tablet 11 05/23/20 23 025 Discontinued(Er ror) atorvastatin (LIPITOR) 80 mg tablet Take 1 tablet (80 mg total) by mouth nightly 90 tablet 3 06/15/19 24 025 Discontinued metoprolol tartrate (LOPRESSOR) 25 mg immediate release tablet TAKE 1 TABLET BY MOUTH TWICE A DAY 180 tablet 3 08/14/19 24 025 Discontinued finasteride (PROSCAR) 5 mg tabletIndicatio ns:Benign prostatic hyperplasia with lower urinary tract symptoms, symptom details unspecified TAKE 1 TABLET BY MOUTH DAILY. 90 tablet 4 02/18/20 24 025 Discontinued rivaroxaban (Xarelto) 20 mg tablet TAKE 1 TABLET EVERY DAY WITH DINNER 90 tablet 3 05/12/20 24 025 Discontinued(Er ror) metoprolol tartrate (LOPRESSOR) 25 mg immediate release tablet TAKE 1 TABLET TWICE DAILY 180 tablet 3 06/11/19 25 025 Discontinued(Er ror) atorvastatin (LIPITOR) 80 mg tablet TAKE 1 TABLET EVERY NIGHT 90 tablet 3 06/11/19 25 025 Discontinued(Er ror) rivaroxaban (XARELTO) 20 mg tablet Take 1 tablet (20 mg total) by mouth nightly 025 Discontinued(St op Taking at Discharge) Active Problems Problem Noted Date Diagnosed Date Prostate cancer 06/19/2024 Malignant neoplasm prostate 05/16/2024 Pseudophakia of left eye 05/23/2022 Combined forms of age-related cataract of right eye 09/19/2021 Assessment & Plan (03/14/2022 8:53 AM CDT): -1 week after intraoperative epitheliopathy limiting view to cataract so surgery was postponed. Doing well today without keratopathy. -patient would like to be scheduled for surgery OS preferably no sooner than 1 month. -discussed with patient that another provider will perform his cataract surgery. Assessment & Plan (03/07/2022 8:39 AM CDT): status post (s/p) attempted phaco OS with corneal clouding intra-op, so procedure was aborted after making main incision -seen in clinic following where exam demonstrated 2+ confluent central and inferior SPE, trace MCE near main incision. -anterior segment OCT with possible epithelial thickening. CCT from anterior segment at 531 -discussed with patient reason for aborting cataract surgery given corneal clouding. Unclear etiology as this could have been reaction to medication. -today with significant improvement in surface keratopathy; remains with normal CCT -will have patient use PF and ofloxacin until Sunday. Continue frequent use of artificial tears -patient prefers to delay surgery OS at this time. Will keep scheduled follow up with patient on Sunday. Assessment & Plan (12/08/2021 10:41 AM CDT): Assessment and Plan 1. Visually Significant Cataract of the left eye - Patient interested in having CE/IOL of the left eye - R/B/A of surgery discussed in detail with patient including but not limited to infection, bleeding, persistent inflammation, diplopia, ptosis, macular edema, need for further surgeries or procedures, need for spectacle correction after surgery, possible loss of vision, possible loss of the eye, and risks of anesthesia. - The patient understands these risks and wishes to proceed. - Target refraction was discussed with the patient. We discussed near, distance, and monovision; we also discussed multifocal, EDOF, and toric lenses. Discussed possible glare/halo following multifocal lenses. The patient elected to target plano. Planned Operation: CE/IOL of the left eye Time: 25 Anesthesia: MAC Local: topical Special equipment: Preop meds: None Med Clearance: CPAP IOL Master: done today Additional perioperative testing/procedure needed?: plano Assessment & Plan (09/19/2021 11:14 AM CDT): NVS right eye (OD) , monitor Visually sig left eye (OS), refer for ankita eval Calculus of gallbladder with cholecystitis without biliary obstruction 07/01/2020 Overview (07/01/2020): Added automatically from request for surgery [id number] Assessment & Plan (07/26/2020 8:31 PM BEHAVIORAL INTERVENTION SPECIALIST): Procedure(s): Laparoscopic Cholecystectomy with Cholangiograms 07/23/2020 1 Day Post-Op 07/24/2020 Elevated LFTs - trending upward - Dr. Hammonds consulted - ERCP for 07/25/2020 07/25/2020 2 Days Post Op ERCP Performed by Dr. Phillip Impression: - Multiple very small (see photo) stones impacted in a highly stenotic (biopsied) papilla and extracted after biliary/pancreatic sphincterotomy. - A bile duct stent was placed to allow the inevitable residual fragments to pass. This stent will require elective endoscopic removal. - Migratory pancreatic duct stenting was performed to reduce risk/severity of potential procedure-associated pancreatitis. This stent is expected to migrate out spontaneously. Recommendation: - Advance diet cautiously and discharge as tolerated. - Return for removal of the bile duct stent in 3-4 weeks or earlier if not tolerated 3 Days Post-Op 07/26/2020 Overall doing well. Mild nausea. Tolerating clears. Follow Coronary arteriosclerosis in cherokee artery 02/23 Overview (09/07/2016): CAD in cherokee artery Microscopic hematuria 09/03/2015 Hypertension 05/24/2012 Social History Tobacco Use Types Packs/Day Years Used Date Smoking Tobacco: Former Cigars Q uit: 2016 Smokeless Tobacco: Never Tobacco Cessation:Counseling Given: Not Answered Alcohol Use Standard Drinks/Week Comments Yes 0 (1 standard drink = 0.6 oz pure alcohol) very rare- 1 beer every 3-4 months AUDIT-C Answer Date Recorded Q1: How often do you have a drink containing alc ohol? Monthly or less 06/19/2024 Q2: How many drinks containi ng alcohol do you have on a typical day when you are drinking? 1 or 2 06/19/2024 Q3: How often do you have si x or more drinks on one occasion? Never 06/19/2024 Personal Safety Answer Date Recorded Have you ever been in or are you currently in a harmful physical or emotional relationship or is someone making you feel afraid or unsafe? Denies 06/19/2024 Sex and Gender Information Value Date Recorded Sex Assigned at Not on file Legal Sex Male 4:46 AM BEHAVIORAL INTERVENTION SPECIALIST Gender Identity Not on file Sexual Orientation Not on file Last Filed Vital Signs Vital Sign Reading Time Taken Comments Blood Pressure 114/58 06/20/2024 8:39 AM BEHAVIORAL INTERVENTION SPECIALIST Pulse 75 06/20/2024 8:39 AM BEHAVIORAL INTERVENTION SPECIALIST Temperature 36.6 ??C (97.8 ??F) 06/20/2024 8:39 AM CS T Respiratory Rate 18 06/20/2024 8:39 AM BEHAVIORAL INTERVENTION SPECIALIST Oxygen Saturation 95% 06/20/2024 8:39 AM BEHAVIORAL INTERVENTION SPECIALIST Inhaled Oxygen Concentration - - Weight 79.8 kg (175 lb 14.8 oz) 06/19/2024 6:19 AM BEHAVIORAL INTERVENTION SPECIALIST Height 170.2 cm (5' 7 ) 06/19/2024 6:19 AM BEHAVIORAL INTERVENTION SPECIALIST Body Mass Index 27.55 06/19/2024 6:19 AM BEHAVIORAL INTERVENTION SPECIALIST Plan of Treatment Not on file Medical Devices Implanted Type Area Players Assistant Device Identifier Shelf Expiration Date Model / Serial / Lot [employer] Lens Iol Cna0t0.170 [facility] Autonom Cna0t0.170 - [id number] - [id number] Implanted:Qty: 1 on 05/22/2022 by Ian Naik MD at [facility] Lens Left: Eye [employer] [id number] 02/11/2025 CNA0T0.1 70 / [id number] [facility] / [employer] 6341 Alvares Flexi-Stent 4fr 2cm Small Pigtail Straight Flexible .025 - [id number] Implanted:Qty: 1 on 07/25/2020 by Tan Phillip MD at [facility] Stent N/A: Pancreas [employer] 11/01/2022 [id number] / / [id number] [employer] [id number] Cotton-Leblanc 8.5fr 7cm Taper Tip Guidewire Proximal Distal Flap - [id number] Implanted:Qty: 1 on 07/25/2020 by Tan Phillip MD at [facility] Stent N/A: Bile Duct [employer] 03/10/2023 [id number] / / [id number] Procedures Procedure Name Priority Date/Time Associated Diagnosis Comments EGFR Routine 06/20/2024 5:59 AM BEHAVIORAL INTERVENTION SPECIALIST HEMOGLOBIN AND HEMATOCRIT Routine 06/20/2024 5:59 AM BEHAVIORAL INTERVENTION SPECIALIST BASIC METABOLIC PANEL Routine 06/20/2024 5:59 AM BEHAVIORAL INTERVENTION SPECIALIST CO AN PROCEDURE PLACEHOLDER Routine 06/19/2024 8:03 AM BEHAVIORAL INTERVENTION SPECIALIST CO AN ELECTIVE ENDOTRACHEAL AIRWAY Routine 06/19/2024 8:03 AM BEHAVIORAL INTERVENTION SPECIALIST XI PROSTATECTOMY - LAPAROSCOPIC ROBOTIC ASSISTED 06/19/2024 7:31 AM BEHAVIORAL INTERVENTION SPECIALIST Malignant neoplasm prostate (HCC) EGFR Routine 06/12/2024 11:38 AM BEHAVIORAL INTERVENTION SPECIALIST Malignant neoplasm prostate (HCC) DIFFERENTIAL AUTO Routine 06/12/2024 11: 38 AM BEHAVIORAL INTERVENTION SPECIALIST Malignant neoplasm prostate (HCC) BASIC METABOLIC PANEL Routine 06/12/2024 11:38 AM BEHAVIORAL INTERVENTION SPECIALIST Malignant neoplasm prostate (HCC) CBC WITH AUTO DIFFERENTIAL Routine 06/12/2024 11:38 AM BEHAVIORAL INTERVENTION SPECIALIST Malignant neoplasm prostate (HCC) TYPE AND SCREEN Routine 06/12/2024 11:38 AM BEHAVIORAL INTERVENTION SPECIALIST Preoperative examination HEMOGLOBIN A1C Routine 06/12/2024 11:38 AM BEHAVIORAL INTERVENTION SPECIALIST Preoperative examination ECG 12-LEAD Routine 06/12/2024 11:23 AM BEHAVIORAL INTERVENTION SPECIALIST Preoperative examination POCT LIPID PANEL Routine 06/11/2024 1:12 PM BEHAVIORAL INTERVENTION SPECIALIST Lipid screening PSA SCREEN Routine 07/12/2023 7:13 AM BEHAVIORAL INTERVENTION SPECIALIST Elevated PSA COLONOSCOPY REPORT 02/01/2016 CT ABDOMEN PELVIS W WO CONTRAST Routine 10/18/2015 8:30 AM CDT from Last 3 Months or Most Recently Relevant to Health Maintenance Results * eGFR (06/20/2024 5:59 AM BEHAVIORAL INTERVENTION SPECIALIST) eGFR 66 >=60 mL/min/1. 73 m2 Comment: Interpretive Data Reference Interval Normal ?>/= 90 mL/min/1.73m2 Mildly decreased* ? 60 - 89 mL/min/1.73m2 Mildly to moderately decreased ?45 - 59 mL/min/1.73m2 Moderately to severely decreased ??30 - 44 mL/min/1.73m2 Severely decreased ?15 - 29 mL/min/1.73m2 Kidney Failure ?< 15 ??mL/min/1.73m2 *Relative to young adult level Estimated glomerular filtration rate is determined by the 2020 CKD-EPI equation recommended by the National Kidney Foundation (A Unifying Approach to GFR Estimation: Recommendations of the NKF-ASK Task Force on Reassessing the Inclusion of Race in Diagnosing Kidney Disease, JASN 2020). The CKD-EPI equation should not be used for patients with unstable renal function and has not been validated in children and those over 70. Current interpretive data was last reviewed 2021. Blood 06/20/2024 5:59 AM BEHAVIORAL INTERVENTION SPECIALIST 06/20/2024 6:31 AM BEHAVIORAL INTERVENTION SPECIALIST Anthony Espinosa MD LAB BLOOD ORDERABLES Susanna l Result Performing Organization Address [facility] Co de Phone Number [facility] [address] [facility] [employer] [place] [address] * (ABNORMAL) Hemoglobin and hematocrit (06/20/2024 5:59 AM BEHAVIORAL INTERVENTION SPECIALIST) [facility] Hgb 12.3(L) 13.0 - 17.5 g/dL Hct 38.1(L) 38.9 - 50.3 % [facility] Blood 06/20/2024 5:59 AM BEHAVIORAL INTERVENTION SPECIALIST 06/20/2024 6:31 AM BEHAVIORAL INTERVENTION SPECIALIST Anthony Espinosa MD LAB BLOOD ORDERABLES Susanna lange Result Performing Organization Address [facility] de Phone Number [facility] [address] [facility] [employer] [place] [address] * (ABNORMAL) Basic metabolic panel (06/20/2024 5:59 AM BEHAVIORAL INTERVENTION SPECIALIST) [facility] Sodium 142 135 - 145 mmol/L Potassium, pl 4.3 3.3 - 4.9 mmol/L [facility] Chloride 110 97 - 110 mmol/L [facility] CO2 20(L) 22 - 32 mmol/L [facility] Anion gap 12 2 - 15 mmol/L [facility] BUN 15 6 - 25 mg/dL [facility] Creatinine 1.17 0.80 - 1.30 mg/dL [facility] Glucose 120 70 - 199 mg/dL [facility] Comment: Interpretive Data Fasting glucose >/= 126 mg/dl is diagnostic for diabetes. ?? Fasting is defined as no caloric intake for at least 8 hours. Fasting glucose between 100 mg/dl to 125 mg/dl is diagnostic of prediabetes. In a patient with classic symptoms of hyperglycemia or hyperglycemic crisis, a random glucose >/= 200 mg/dl is diagnostic for diabetes. In the absence of unequivocal hyperglycemia, results should be confirmed by repeat testing. The classification and Diagnosis of Diabetes Diabetes Care 2021; 46: S19-S40. Current interpretive data was last revised 2022. Calcium 8.1(L) 8.5 - 10.3 mg/dL [facility] Blood 06/20/2024 5:59 AM BEHAVIORAL INTERVENTION SPECIALIST 06/20/2024 6:31 AM BEHAVIORAL INTERVENTION SPECIALIST us Anthony Espinosa MD LAB BLOOD ORDERABLES Susanna lange Result [facility] [address] Department [place] [address] * CO AN ELECTIVE ENDOTRACHEAL AIRWAY, CO AN PROCEDURE PLACEHOLDER (06/19/2024 8:03 AM BEHAVIORAL INTERVENTION SPECIALIST) Narrative Alonzo Etienne CRNA - 06/19/2024 8:03 AM BEHAVIORAL INTERVENTION SPECIALIST Alonzo Etienne CRNA ? 06/19/2024 ??8:05 AM Airway Patient location: OR Urgency: elective Indications for airway management: anesthesia Difficult airway: no Staff: Placed by: LUIS ANGEL: Alonzo Etienne CRNA Emergent airway documentation: Risks and benefits discussed: yes Consent obtained: yes Consent given by: patient Airway prep: Preoxygenated: yes Patient position: sniffing Mask difficulty assessment: 2 - vent by mask + OA or adjuvant Sedation level during airway: GA Final airway details: Final airway type: endotracheal airway Tube type: ETT ETT size: 8.0 mm Cuffed: yes Technique used for successful ETT placement: video laryngoscopy Devices/Methods used in placement: stylet Insertion site: oral Blade type: Mik Video blade type: Nayak Blade size: 4 Cormack-Lehane (video): grade I - full view of glottis Cuff volume: 8 mL Cuff inflated with: air ETT to teeth: 24 cm Placement verified by: auscultation and CO2 detection Airway secured with: silk tape Number of attempts: 1 Additional comments: Inserted by Dilcia DE LA VEGA. Atraumatic, dentition unchanged from pre-op. Supervised by [employer]ATCH[employer] EMPLOYEE us David Cain MD ANESTHESIA ORDERABLES Final Result * eGFR (06/12/2024 11:38 AM BEHAVIORAL INTERVENTION SPECIALIST) eGFR 60 >=60 mL/min/1. 73 m2 Comment: Interpretive Data Reference Interval Normal ?>/= 90 mL/min/1.73m2 Mildly decreased* ? 60 - 89 mL/min/1.73m2 Mildly to moderately decreased ?45 - 59 mL/min/1.73m2 Moderately to severely decreased ??30 - 44 mL/min/1.73m2 Severely decreased ?15 - 29 mL/min/1.73m2 Kidney Failure ?< 15 ??mL/min/1.73m2 *Relative to young adult level Estimated glomerular filtration rate is determined by the 2020 CKD-EPI equation recommended by the National Kidney Foundation (A Unifying Approach to GFR Estimation: Recommendations of the NKF-ASK Task Force on Reassessing the Inclusion of Race in Diagnosing Kidney Disease, JASN 2020). The CKD-EPI equation should not be used for patients with unstable renal function and has not been validated in children and those over 70. Current interpretive data was last reviewed 2021. Blood 06/12/2024 11:3 8 AM BEHAVIORAL INTERVENTION SPECIALIST 06/12/2024 11:38 AM BEHAVIORAL INTERVENTION SPECIALIST us Anthony Espinosa MD LAB BLOOD ORDERABLES Susanna l Result [facility] [address] Department [place] [address] * Differential, auto (06/12/2024 11:38 AM BEHAVIORAL INTERVENTION SPECIALIST) Neutrophil abs 5.5 1.5 - 6.5 K/cumm Imm gran abs 0.0 0.0 - 0.1 K/cumm [facility] Lymphocyte abs 2.8 0.8 - 3.3 K/cumm [facility] Monocyte abs 0.6 0.2 - 0.8 K/cumm [facility] Eosinophil abs 0.4 0.0 - 0.5 K/cumm [facility] Basophil abs 0.1 0.0 - 0.1 K/cumm [facility] Neutrophil pct 58.0 % [facility] Comment: Interpretive Data Percent cell count reference ranges are not reported, since discordance with absolute values may lead to misinterpretation of CBC data. Current Interpretive Data was last revised on 2017. Imm gran pct 0.4 % [facility] Comment: Interpretive Data Percent cell count reference ranges are not reported, since discordance with absolute values may lead to misinterpretation of CBC data. Current Interpretive Data was last revised on 2017. Lymphocyte pct 30.0 % [facility] Comment: Interpretive Data Percent cell count reference ranges are not reported, since discordance with absolute values may lead to misinterpretation of CBC data. Current Interpretive Data was last revised on 2017. Monocyte pct 6.6 % [facility] Comment: Interpretive Data Percent cell count reference ranges are not reported, since discordance with absolute values may lead to misinterpretation of CBC data. Current Interpretive Data was last revised on 2017. Eosinophil pct 4.2 % [facility] Comment: Interpretive Data Percent cell count reference ranges are not reported, since discordance with absolute values may lead to misinterpretation of CBC data. Current Interpretive Data was last revised on 2017. Basophil pct 0.8 % [facility] Comment: Interpretive Data Percent cell count reference ranges are not reported, since discordance with absolute values may lead to misinterpretation of CBC data. Current Interpretive Data was last revised on 2017. Blood 06/12/2024 11:3 8 AM BEHAVIORAL INTERVENTION SPECIALIST 06/12/2024 11:38 AM BEHAVIORAL INTERVENTION SPECIALIST us Anthony Espinosa MD LAB BLOOD ORDERABLES Susanna lange Result [facility] [address] Department [place] [address] * CBC with auto differential (06/12/2024 11:38 AM BEHAVIORAL INTERVENTION SPECIALIST) Pathologist [facility] WBC 9.4 3.8 - 9.9 K/cumm Hgb 15.4 13.0 - 17.5 g/dL [facility] Hct 45.8 38.9 - 50.3 % [facility] Plt 260 150 - 400 K/cumm [facility] MPV 10.5 9.1 - 12.3 fL [facility] RBC 5.52 4.30 - 5.80 M/cumm [facility] MCV 83.0 81.3 - 96.4 fL [facility] MCH 27.9 27.1 - 33.3 pg [facility] MCHC 33.6 32.3 - 35.7 g/dL [facility] RDW CV 13.8 11.1 - 14.9 % [facility] RDW SD 41.5 35.7 - 48.1 fL [facility] NRBC abs 0.00 0.00 - 0.01 K/cumm [facility] Blood 06/12/2024 11:3 8 AM BEHAVIORAL INTERVENTION SPECIALIST 06/12/2024 11:38 AM BEHAVIORAL INTERVENTION SPECIALIST us Anthony Espinosa MD LAB BLOOD ORDERABLES Susanna lange Result [facility] [address] Department [place] [address] * Type and screen (06/12/2024 11:38 AM BEHAVIORAL INTERVENTION SPECIALIST) Pathologist [facility] Lesia, indirect Negative ABO Rh AB Positive [facility] Blood 06/12/2024 11:3 8 AM BEHAVIORAL INTERVENTION SPECIALIST 06/12/2024 11:50 AM BEHAVIORAL INTERVENTION SPECIALIST Narrative [facility] - 06/12/2024 12:36 PM BEHAVIORAL INTERVENTION SPECIALIST Is this test being ordered in advance for a procedure?->Yes Expected date of procedure:->06/19/24 Has the patient been transfused in the past 3 months?->No us Valentine Smith NP LAB BLOOD BANK TEST TIFFANIE ZAVALA Final Result Performing Organization Address [facility] de Phone Number [facility] [address] Department [place] [address] * (ABNORMAL) Hemoglobin A1c (06/12/2024 11:38 AM BEHAVIORAL INTERVENTION SPECIALIST) Pathologist [facility] Hgb A1C 5.8(H) 4.0 - 5.6 % Estimated Average Glucose 120 mg/dL [facility] Comment: The ADA recommends reporting an estimated Average Glucose (eAG) with all Hemoglobin A1c results using the equation derived from a study of 507 normal and diabetic adults. ??Minority populations were underrepresented and children were not included. ?? (Diabetes Care 31:3243-9646, 2008). ??The eAG is not equivalent to a fasting glucose. Blood 06/12/2024 11:3 8 AM BEHAVIORAL INTERVENTION SPECIALIST 06/12/2024 11:38 AM BEHAVIORAL INTERVENTION SPECIALIST Valentine Smith NP LAB BLOOD ORDERABLES Fin al Result Performing Organization Address [facility] de Phone Number [facility] [address] [place] [address] * Basic metabolic panel (06/12/2024 11:38 AM BEHAVIORAL INTERVENTION SPECIALIST) [facility] Sodium 140 135 - 145 mmol/L Potassium, pl 4.9 3.3 - 4.9 mmol/L [facility] Chloride 105 97 - 110 mmol/L [facility] CO2 25 22 - 32 mmol/L [facility] Anion gap 10 2 - 15 mmol/L [facility] BUN 19 6 - 25 mg/dL [facility] Creatinine 1.26 0.80 - 1.30 mg/dL [facility] Glucose 92 70 - 199 mg/dL [facility] Comment: Interpretive Data Fasting glucose >/= 126 mg/dl is diagnostic for diabetes. ?? Fasting is defined as no caloric intake for at least 8 hours. Fasting glucose between 100 mg/dl to 125 mg/dl is diagnostic of prediabetes. In a patient with classic symptoms of hyperglycemia or hyperglycemic crisis, a random glucose >/= 200 mg/dl is diagnostic for diabetes. In the absence of unequivocal hyperglycemia, results should be confirmed by repeat testing. The classification and Diagnosis of Diabetes Diabetes Care 2021; 46: S19-S40. Current interpretive data was last revised 2022. Calcium 9.2 8.5 - 10.3 mg/dL [facility] Blood 06/12/2024 11:3 8 AM BEHAVIORAL INTERVENTION SPECIALIST 06/12/2024 11:38 AM BEHAVIORAL INTERVENTION SPECIALIST Anthony Espinosa MD LAB BLOOD ORDERABLES Susanna l Result [facility] [address] [place] [address] * ECG 12 lead (06/12/2024 11:23 AM BEHAVIORAL INTERVENTION SPECIALIST) 06/12/2024 11:2 4 AM BEHAVIORAL INTERVENTION SPECIALIST Narrative [facility] - 06/12/2024 8:04 PM BEHAVIORAL INTERVENTION SPECIALIST Vent Rate: 61 bpm RR Interval: 980 msec CO Interval: 139 msec QRS Duration: 92 msec QT Interval: 423 msec QTC Interval: 425 msec P-R-T [place]: 48 - 94 - 30 degrees IMPRESSION: SINUS RHYTHM BORDERLINE RIGHT AXIS DEVIATION LOW QRS VOLTAGE IN EXTREMITY LEADS BORDERLINE ECG Electronically Signed By: Tyree Montenegro [facility] Card Valentine Smith ENVIRONMENTAL ADVISOR ECG ORDERABLES Final Re sult Performing Organization Address [facility] Co de Phone Number [facility] [employer] [facility] * POCT lipid panel (06/11/2024 1:12 PM BEHAVIORAL INTERVENTION SPECIALIST) Cholesterol, POC 120 mg/dL HDL, POC 36 mg/dL Triglycerides, POC 145 mg/dL LDL Cholesterol POC 55 mg/dL Chol/HDL Ratio, POC 1.5 Non-HDL Cholesterol, POC 84 mg/dL Cholesterol Total, POC 120 mg/dL Capillary blood 06/11/2024 1 :12 PM BEHAVIORAL INTERVENTION SPECIALIST Leandro Hester MD POINT OF CARE TEST ORDERABLES Fi nal Result * PSA screen (07/12/2023 7:13 AM BEHAVIORAL INTERVENTION SPECIALIST) PSA 3.71 < OR = 4.00 ng/mL [employer] Comment: The total PSA value from this assay system is standardized against the WHO standard. The test result will be approximately 20% lower when compared to the equimolar-standardized total PSA (Shari Staci). Comparison of serial PSA results should be interpreted with this fact in mind. This test was performed using the Siemens chemiluminescent method. Values obtained from different assay methods cannot be used interchangeably. PSA levels, regardless of value, should not be interpreted as absolute evidence of the presence or absence of disease. Blood 07/12/2023 7:13 AM BEHAVIORAL INTERVENTION SPECIALIST 07/12/2023 7:13 AM BEHAVIORAL INTERVENTION SPECIALIST Kaleb Hughes ENVIRONMENTAL ADVISOR LAB BLOOD ORDERABLES F inal Result [facility] [address] [place] [address] * COLONOSCOPY REPORT (02/01/2016) Anatomical Region Laterality Modality Other Narrative 02/01/2016 Ordered by an unspecified provider. Historical Provider GI PROCEDURE ORDERABLES F inal Result * CT Abdomen Pelvis W WO Contrast (10/18/2015 8:30 AM CDT) Anatomical Region Laterality Modality Body N/A Computed Tomogra phy 10/18/2015 8:30 AM CDT Narrative 10/18/2015 10:48 AM CDT RUBI PITT M.D. MAHNAZ LANDRUM M.D. FINAL REPORT The radiology attending physician has personally reviewed this study, and has reviewed and/or edited this written report and agrees with it. ACC# ??Date Time ??Exam [id number] October 18, 2015 08:30:[id number] Abd & Pelvis wwo cont [id number] October 18, 2015 08:30:00 [id number] 3-DRendering sep Modality EXAMINATION: ?? 1. CT UROGRAPHY WITH AND WITHOUT CONTRAST 2. 3D RENDERING DATE: 10/18/2015 HISTORY: 65-year-old man with benign prostatic hyperplasia and lower urinary tract symptoms found to have microscopic hematuria on urinalysis. TECHNIQUE: ??CT urography of the abdomen and pelvis performed prior to and following uneventful intravenous administration of 120 mL Optiray 350 in the conventional protocol. Post-processed 3D images were generated on a dedicated workstation and also reviewed. COMPARISON: None available. FINDINGS: UROGRAPHIC FINDINGS: Right Kidney: The right kidney measures 10.2 cm pole to pole. There is a 1.2 cm well-circumscribed, hypoattenuating cyst within the interpolar region the right kidney. No calculi are seen. There is no hydronephrosis. The ureter is normal. The urothelium appears normal. Left Kidney: The left kidney measures 10.8 cm pole to pole. There are no focal lesions. No calculi are seen. There is no hydronephrosis. The ureter is normal. The urothelium appears normal. Bladder: There is no wall thickening. No masses are seen. NON-UROGRAPHIC FINDINGS: The prostate is mildly enlarged. There are mild atherosclerotic intimal calcifications of the abdominal aorta and its branches. Lung bases are clear. ??Liver, spleen, pancreas and adrenal glands are normal. There is no bowel obstruction. The appendix is visualized and appears normal. There is no abdominal or pelvic lymphadenopathy. No ascites. Bone window demonstrates no suspicious osteolytic or osteoblastic lesions. IMPRESSION: ?? 1. Normal CT urogram. 2. Mild prostatomegaly. Requested By: Dictated By: ?? MAHNAZ LANDRUM M.D. ??on Oct 18 2015 ??9:41A This document has been electronically signed by: RUBI PITT M.D. on Oct 18 2015 10:48A [id number] Procedure Note Provider, MD Jenna - 09/26/2016 RUBI PITT M.D. MAHNAZ LANDRUM M.D. FINAL REPORT The radiology attending physician has personally reviewed this study, and has reviewed and/or edited this written report and agrees with it. ACC# Date Time Exam [id number] October 18, 2015 08:30:[id number] Abd & Pelvis wwo cont [id number] October 18, 2015 08:30:00 [id number] 3-DRendering sep Modality EXAMINATION: 1. CT UROGRAPHY WITH AND WITHOUT CONTRAST 2. 3D RENDERING DATE: 10/18/2015 HISTORY: 65-year-old man with benign prostatic hyperplasia and lower urinary tract symptoms found to have microscopic hematuria onurinalysis. TECHNIQUE: CT urography of the abdomen and pelvis performed prior to and following uneventful intravenous administration of 120 mL Optiray 350 in the conventional protocol. Post-processed 3D images were generated on a dedicated workstation and also reviewed. COMPARISON: None available. FINDINGS: UROGRAPHIC FINDINGS: Right Kidney: The right kidney measures 10.2 cm pole to pole. There is a 1.2 cm well-circumscribed, hypoattenuating cyst within the interpolar region the right kidney. No calculi are seen. There is no hydronephrosis. The ureter is normal. The urothelium appears normal. Left Kidney: The left kidney measures 10.8 cm pole to pole. There are no focal lesions. No calculi are seen. There is no hydronephrosis. The ureter is normal. The urothelium appears normal. Bladder: There is no wall thickening. No masses are seen. NON-UROGRAPHIC FINDINGS: The prostate is mildly enlarged. There are mild atherosclerotic intimal calcifications of the abdominal aorta and its branches. Lung bases are clear. Liver, spleen, pancreas and adrenal glands are normal. There is no bowel obstruction. The appendix is visualized and appears normal. There is no abdominal or pelvic lymphadenopathy. No ascites. Bone window demonstrates no suspicious osteolytic or osteoblastic lesions. IMPRESSION: 1. Normal CT urogram. 2. Mild prostatomegaly. Requested By: Dictated By: MAHNAZ LANDRUM M.D. on Oct 18 2015 9:41A This document has been electronically signed by: RUBI PITT M.D. on Oct 18 2015 10:48A [id number] us Historical Provider MD [facility] CT PROCEDURES Final R esult from Last 3 Months or Most Recently Relevant to Health [place] [address] [place] [address] [facility] [place] [address] [place] [address] [place] [address] MEDICARE [facility] MEDICARE SUPPLEMENT MEDICARE Advance Directives For more information, please contact: [phone] * Full Code (Latest Code Status on File) Date Activated Date Inactivated Comments 06/19/2024 12:48 PM 06/20/2024 7:44 PM * Full Code Date Activated Date Inactivated Comments 07/25/2020 7:54 AM 07/27/2020 7:32 PM * Full Code Date Activated Date Inactivated Comments 07/23/2020 6:59 PM 07/25/2020 7:54 AM Care Teams 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
--- OUTSIDE RECORDS SUMMARY | 2024-06-26 10:13 | XMS_ITS | Clinical Summary ---
Author Organization [facility] [address] Address [address] [place] [address] Care Team Providers Care Pharmacy Technician Assistant Name Role Phone Quirino Recio MD Primary Care Provider Carlos Mari MD Unavailable Anthony Espinosa MD Unavailable Allergies Active Allergy Reactions Criticality Noted Date [...] (07/01/2020): Added automatically from request for surgery [id number] Assessment & Plan (07/26/2020 8:31 PM INSTANT POTATO PROCESSING SUPERVISOR): Procedure(s): Laparoscopic Cholecystectomy with Cholangiograms 07/23/2020 1 [...] nausea. Tolerating clears. 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 02/23 Overview (09/07/2016): CAD in holy cross artery Microscopic hematuria 09/03/2015 Hypertension 05/24/2012 Encounters Date Type Department Care Team Description 06/23/2024 Telephone [facility] Cardiology [address] [place] [address] Leandro Hester MD 06/19/2024 7:30 AM INSTANT POTATO PROCESSING SUPERVISOR - 06/19/2024 11:30 AM INSTANT POTATO PROCESSING SUPERVISOR Surgery [facility] Operating Room [address] [place] [phone] Anthony Espinosa MD Robotic Assisted Prostatectomy, Bilateral Lymph Node Dissection 06/19/2024 7:30 AM INSTANT POTATO PROCESSING SUPERVISOR Anesthesia Event [facility] Operating Room [address] [place] [phone] David Cain MD Thompson, Kathryn Ann, PA 06/19/2024 5:34 AM INSTANT POTATO PROCESSING SUPERVISOR - 06/20/2024 3:39 PM INSTANT POTATO PROCESSING SUPERVISOR Hospital Encounter [address] [phone] Anthony Espinosa MD Malignant neoplasm prostate (HCC) Discharge Disposition: Discharge to home or self care 06/12/2024 10:15 AM INSTANT POTATO PROCESSING SUPERVISOR Pre-Admission Testing [facility] Pre Anesthesia Testing [address] [place] [phone] Preoperative examination (Primary Dx); Malignant neoplasm prostate (HCC) 06/12/2024 10:08 AM INSTANT POTATO PROCESSING SUPERVISOR - 06/12/2024 11:59 PM INSTANT POTATO PROCESSING SUPERVISOR Hospital Encounter [facility] Cardiac Testing [address] [place] [address] [address] [place] [address] Preoperative examination Discharge Disposition: Discharge to home or self care 06/11/2024 1:00 PM INSTANT POTATO PROCESSING SUPERVISOR Office Visit [facility] Cardiology [address] [place] [address] Leandro Hester MD Preop cardiovascular exam (Primary Dx); Coronary artery disease involving holy cross coronary artery of holy cross heart without angina pectoris; S/P CABG x 5; PAF (paroxysmal atrial fibrillation) (CMS/HCC) (HCC); Chronic anticoagulation; Essential hypertension; Lipid screening from Last 3 Months Surgical History Surgery Date Site/Laterality Comments CORONARY ARTERY BYPASS GRAFT 01/17/2016 CYSTOSCOPY W/ URETEROSCOPY W / LITHOTRIPSY 06/04/2005 - 06/03/2006 CHOLECYSTECTOMY 06/04/2020 - 06/03/2021 COLONOSCOPY CATARACT EXTRACTION W/ INTRA OCULAR LENS IMPLANT 05/22/[address] Naik CATARACT EXTRACTION Medical History Medical History Date Comments Myocardial infarction (HCC) [address]- followed by Dr Hester yearly, RAHUL 01/14/2020 Hypertension Hyperlipidemia Calculus of gallbladder with cholecystitis CAD (coronary artery disease) s/ p 5 V CABG 01/2016 A-fib (CMS/HCC) (HCC) 11/26/2018 Thirty day event monitor- Underlying normal sinus rhythm with average heart rate of 67 beats per minute. Frequent ventricular ectopy without significant runs. No atrial fibrillation. BPH (benign prostatic hyperplasia) Urolithiasis 2005 Motion sickness Chronic kidney disease Family History Medical History Relation Name Comments Coronary artery disease Brother Naun nary artery disease; Coronary artery disease Father Naun nary artery disease; Blindness Mother Anesthesia problems Neg Hx Relation Name Status Comments Brother Father (Age 72) Mother Social History Tobacco Use Types Packs/Day Years [...] on file Legal Sex Male 4:46 AM INSTANT POTATO PROCESSING SUPERVISOR Gender Identity Not on file Sexual Orientation Not on file Obstetrics History Last Filed Vital Signs Vital Sign Reading Time Taken Comments Blood Pressure 114/58 06/20/2024 8:39 AM INSTANT POTATO PROCESSING SUPERVISOR Pulse 75 06/20/2024 8:39 AM INSTANT POTATO PROCESSING SUPERVISOR Temperature 36.6 ??C (97.8 ??F) 06/20/2024 8:39 AM CS T Respiratory Rate 18 06/20/2024 8:39 AM INSTANT POTATO PROCESSING SUPERVISOR Oxygen Saturation 95% 06/20/2024 8:39 AM INSTANT POTATO PROCESSING SUPERVISOR Inhaled Oxygen Concentration - - Weight 79.8 kg (175 lb 14.8 oz) 06/19/2024 6:19 AM INSTANT POTATO PROCESSING SUPERVISOR Height 170.2 cm (5' 7 ) 06/19/2024 6:19 AM INSTANT POTATO PROCESSING SUPERVISOR Body Mass Index 27.55 06/19/2024 6:19 AM INSTANT POTATO PROCESSING SUPERVISOR Plan of Treatment Health Maintenance Due Date Last Done Comments Depression Screening 1950 Hepatitis C Screening 1950 DTaP/Tdap/Td Vaccine (1 - Tdap) 1962 Hepatitis B Screening 1969 Zoster Vaccine (1 of 2) 2001 Abdominal Aortic Aneurysm (A AA) Screen 01/28/2016 10/18/2015 Well Visit 65+ 01/28/2016 Pneumococcal vaccine 65+ (2 of 2 - PPSV23 or PCV20) 03/14/2020 03/14/2019 Covid-19 Vaccine (4 - 2023-2 5 season) 2024 03/24/2021, 09/12/2020, 08/17/2020 Influenza Vaccine (#1) 2024 9, 03/17/2018, 07/12/2017, Additional history exists Fall Risk Assessment 06/20/2025 06/20/2024 Colon Cancer Screening-Colonoscopy 01/31/2026 02/01/2016 Colon Cancer Screening-CT Colonography Discontinued 02/01/2016 Colon Cancer Screening-DNA Stool Discontinued 02/01/20 Colon Cancer Screening-FIT Discontinued 02/01/2016 Colon Cancer Screening-Sigmoidoscopy Discontinued 02/01/2016 Prostate Cancer Screening-PSA Discontinued , 01/03/2023, 10/06/2022, Additional history exists Medical Devices Implanted Type Area Death Clearance Coordinator Device Identifier Shelf Expiration Date Model / Serial / Lot [employer] Lens Iol Cna0t0.170 Clareon Uva Autonom Cna0t0.170 - [id number] - [id number] Implanted:Qty: 1 on 05/22/2022 by Ian Naik MD at [facility] Lens Left: Eye [employer] [id number] 02/11/2025 CNA0T0.1 70 / [id number] / [employer] [id number] Alvares Flexi-Stent 4fr 2cm Small Pigtail Straight Flexible .025 - [id number] Implanted:Qty: 1 on 07/25/2020 by Tan Phillip MD at [facility] Stent N/A: Pancreas [employer] 11/01/2022 [id number] / / [id number] [employer] [id number] Cotton-Leblanc 8.5fr 7cm Taper Tip Guidewire Proximal Distal Flap - [id number] Implanted:Qty: 1 on 07/25/2020 by Tan Phillip MD at [facility] Stent N/A: Bile Duct [employer] 03/10/2023 [id number] / / [id number] Procedures Procedure Name Priority Date/Time Associated Diagnosis Comments EGFR Routine 06/20/2024 5:59 AM INSTANT POTATO PROCESSING SUPERVISOR HEMOGLOBIN AND HEMATOCRIT Routine 06/20/2024 5:59 AM INSTANT POTATO PROCESSING SUPERVISOR BASIC METABOLIC PANEL Routine 06/20/2024 5:59 AM INSTANT POTATO PROCESSING SUPERVISOR DC AN PROCEDURE PLACEHOLDER Routine 06/19/2024 8:03 AM INSTANT POTATO PROCESSING SUPERVISOR DC AN ELECTIVE ENDOTRACHEAL AIRWAY Routine 06/19/2024 8:03 AM INSTANT POTATO PROCESSING SUPERVISOR XI PROSTATECTOMY - LAPAROSCOPIC ROBOTIC ASSISTED 06/19/2024 7:31 AM INSTANT POTATO PROCESSING SUPERVISOR Malignant neoplasm prostate (HCC) EGFR Routine 06/12/2024 11:38 AM INSTANT POTATO PROCESSING SUPERVISOR Malignant neoplasm prostate (HCC) DIFFERENTIAL AUTO Routine 06/12/2024 11: 38 AM INSTANT POTATO PROCESSING SUPERVISOR Malignant neoplasm prostate (HCC) BASIC METABOLIC PANEL Routine 06/12/2024 11:38 AM INSTANT POTATO PROCESSING SUPERVISOR Malignant neoplasm prostate (HCC) CBC WITH AUTO DIFFERENTIAL Routine 06/12/2024 11:38 AM INSTANT POTATO PROCESSING SUPERVISOR Malignant neoplasm prostate (HCC) TYPE AND SCREEN Routine 06/12/2024 11:38 AM INSTANT POTATO PROCESSING SUPERVISOR Preoperative examination HEMOGLOBIN A1C Routine 06/12/2024 11:38 AM INSTANT POTATO PROCESSING SUPERVISOR Preoperative examination ECG 12-LEAD Routine 06/12/2024 11:23 AM INSTANT POTATO PROCESSING SUPERVISOR Preoperative examination POCT LIPID PANEL Routine 06/11/2024 1:12 PM INSTANT POTATO PROCESSING SUPERVISOR Lipid screening PSA SCREEN Routine 07/12/2023 7:13 AM INSTANT POTATO PROCESSING SUPERVISOR Elevated PSA COLONOSCOPY REPORT 02/01/2016 CT ABDOMEN PELVIS W WO CONTRAST Routine 10/18/2015 8:30 AM CDT from Last 3 Months or Most Recently Relevant to Health Maintenance Results * eGFR (06/20/2024 5:59 AM INSTANT POTATO PROCESSING SUPERVISOR) eGFR 66 >=60 mL/min/1. 73 m2 Comment: [...] last reviewed 2021. Blood 06/20/2024 5:59 AM INSTANT POTATO PROCESSING SUPERVISOR 06/20/2024 6:31 AM INSTANT POTATO PROCESSING SUPERVISOR Anthony Espinosa MD LAB BLOOD ORDERABLES Susanna l Result Performing Organization Address City/[facility]/ZIP Co de Phone Number [facility] [address] [facility] [place] [address] * (ABNORMAL) Hemoglobin and hematocrit (06/20/2024 5:59 AM INSTANT POTATO PROCESSING SUPERVISOR) Hgb 12.3(L) 13.0 - 17.5 g/dL Hct 38.1(L) 38.9 - 50.3 % [facility] Blood 06/20/2024 5:59 AM INSTANT POTATO PROCESSING SUPERVISOR 06/20/2024 6:31 AM INSTANT POTATO PROCESSING SUPERVISOR Anthony Espinosa MD LAB BLOOD ORDERABLES Susanna l Result Performing Organization Address [facility] Co de Phone Number [facility] [address] [facility] [place] [address] * (ABNORMAL) Basic metabolic panel (06/20/2024 5:59 AM INSTANT POTATO PROCESSING SUPERVISOR) Sodium 142 135 - 145 mmol/L Potassium, pl 4.3 3.3 - 4.9 mmol/L [facility] Chloride 110 97 - 110 mmol/L [facility] CO2 20(L) 22 - 32 mmol/L [facility] Anion gap 12 2 - 15 mmol/L [facility] BUN 15 6 - 25 mg/dL [facility] Creatinine 1.17 0.80 - 1.30 mg/dL [facility] Glucose 120 70 - 199 mg/dL [facility] Comment: Interpretive Data Fasting glucose >/= 126 [...] 2022. Calcium 8.1(L) 8.5 - 10.3 mg/dL [facility] Blood 06/20/2024 5:59 AM INSTANT POTATO PROCESSING SUPERVISOR 06/20/2024 6:31 AM INSTANT POTATO PROCESSING SUPERVISOR us Anthony Espinosa MD LAB BLOOD ORDERABLES Susanna lange Result [facility] [address] Department [place] [address] * DC AN ELECTIVE ENDOTRACHEAL AIRWAY, DC AN PROCEDURE PLACEHOLDER (06/19/2024 8:03 AM INSTANT POTATO PROCESSING SUPERVISOR) Narrative Alonzo Etienne CRNA - 06/19/2024 8:03 AM INSTANT POTATO PROCESSING SUPERVISOR Alonzo Etienne CRNA ? 06/19/2024 ??8:05 AM Airway Patient location: OR Urgency: elective Indications for airway management: anesthesia Difficult airway: no Staff: Placed by: DEER FARM WORKER: Alonzo Etienne CRNA Emergent airway documentation: Risks [...] attempts: 1 Additional comments: Inserted by Dilcia Crory SRNA. Atraumatic, dentition unchanged from pre-op. Supervised by DEER FARM WORKER us David Cain MD ANESTHESIA ORDERABLES Final Result * eGFR (06/12/2024 11:38 AM INSTANT POTATO PROCESSING SUPERVISOR) eGFR 60 >=60 mL/min/1. 73 m2 Comment: [...] reviewed 2021. Blood 06/12/2024 11:3 8 AM INSTANT POTATO PROCESSING SUPERVISOR 06/12/2024 11:38 AM INSTANT POTATO PROCESSING SUPERVISOR us Anthony Espinosa MD LAB BLOOD ORDERABLES Susanna l Result [facility] [address] Department [place] [address] * Differential, auto (06/12/2024 11:38 AM INSTANT POTATO PROCESSING SUPERVISOR) Neutrophil abs 5.5 1.5 - 6.5 K/cumm Imm gran abs 0.0 0.0 - 0.1 K/cumm [facility] Lymphocyte abs 2.8 0.8 - 3.3 K/cumm [facility] Monocyte abs 0.6 0.2 - 0.8 K/cumm [facility] Eosinophil abs 0.4 0.0 - 0.5 K/cumm [facility] Basophil abs 0.1 0.0 - 0.1 K/cumm [facility] Neutrophil pct 58.0 % [facility] Comment: Interpretive Data Percent cell count reference ranges are not reported, since discordance with absolute values may lead to misinterpretation of CBC data. Current Interpretive Data was last revised on 2017. Imm gran pct 0.4 % [facility] Comment: Interpretive Data Percent cell count reference ranges are not reported, since discordance with absolute values may lead to misinterpretation of CBC data. Current Interpretive Data was last revised on 2017. Lymphocyte pct 30.0 % [facility] Comment: Interpretive Data Percent cell count reference ranges are not reported, since discordance with absolute values may lead to misinterpretation of CBC data. Current Interpretive Data was last revised on 2017. Monocyte pct 6.6 % [facility] Comment: Interpretive Data Percent cell count reference ranges are not reported, since discordance with absolute values may lead to misinterpretation of CBC data. Current Interpretive Data was last revised on 2017. Eosinophil pct 4.2 % [facility] Comment: Interpretive Data Percent cell count reference ranges are not reported, since discordance with absolute values may lead to misinterpretation of CBC data. Current Interpretive Data was last revised on 2017. Basophil pct 0.8 % [facility] Comment: Interpretive Data Percent cell count reference ranges are not reported, since discordance with absolute values may lead to misinterpretation of CBC data. Current Interpretive Data was last revised on 2017. Blood 06/12/2024 11:3 8 AM INSTANT POTATO PROCESSING SUPERVISOR 06/12/2024 11:38 AM INSTANT POTATO PROCESSING SUPERVISOR us Anthony Espinosa MD LAB BLOOD ORDERABLES Susanna l Result Performing Organization Address City/State/[facility] Co de Phone Number [facility] [address] Department [place] [address] * CBC with auto differential (06/12/2024 11:38 AM INSTANT POTATO PROCESSING SUPERVISOR) WBC 9.4 3.8 - 9.9 K/cumm Hgb 15.4 13.0 - 17.5 g/dL [facility] Hct 45.8 38.9 - 50.3 % [facility] Plt 260 150 - 400 K/cumm [facility] MPV 10.5 9.1 - 12.3 fL [facility] RBC 5.52 4.30 - 5.80 M/cumm [facility] MCV 83.0 81.3 - 96.4 fL [facility] MCH 27.9 27.1 - 33.3 pg [facility] MCHC 33.6 32.3 - 35.7 g/dL [facility] RDW CV 13.8 11.1 - 14.9 % [facility] RDW SD 41.5 35.7 - 48.1 fL [facility] NRBC abs 0.00 0.00 - 0.01 K/cumm [facility] Blood 06/12/2024 11:3 8 AM INSTANT POTATO PROCESSING SUPERVISOR 06/12/2024 11:38 AM INSTANT POTATO PROCESSING SUPERVISOR Anthony Espinosa MD LAB BLOOD ORDERABLES Susanna l Result Performing Organization Address [facility] Co de Phone Number [facility] [address] Department [place] [address] * Type and screen (06/12/2024 11:38 AM INSTANT POTATO PROCESSING SUPERVISOR) Pathologist [facility], indirect Negative ABO Rh AB Positive [facility] Blood 06/12/2024 11:3 8 AM INSTANT POTATO PROCESSING SUPERVISOR 06/12/2024 11:50 AM INSTANT POTATO PROCESSING SUPERVISOR Narrative [facility] - 06/12/2024 12:36 PM INSTANT POTATO PROCESSING SUPERVISOR Is this test being ordered in advance for a procedure?->Yes Expected date of procedure:->06/19/24 Has the patient been transfused in the past 3 months?->No Valentine Smith NP LAB BLOOD BANK TEST TIFFANIE ZAVALA Final Result Performing Organization Address [facility] Co de Phone Number [facility] [address] [place] [address] * (ABNORMAL) Hemoglobin A1c (06/12/2024 11:38 AM INSTANT POTATO PROCESSING SUPERVISOR) [facility] Hgb A1C 5.8(H) 4.0 - 5.6 % Estimated Average Glucose 120 mg/dL [facility] Comment: The ADA recommends reporting an estimated Average Glucose (eAG) with all Hemoglobin A1c results using the equation derived from a study of 507 normal and diabetic adults. ??Minority populations were underrepresented and children were not included. ?? (Diabetes Care 31:7910-7279, 2008). ??The eAG is not equivalent to a fasting glucose. Blood 06/12/2024 11:3 8 AM INSTANT POTATO PROCESSING SUPERVISOR 06/12/2024 11:38 AM INSTANT POTATO PROCESSING SUPERVISOR Valentine Smith NP LAB BLOOD ORDERABLES Fin al Result Performing Organization Address [facility] Co de Phone Number [facility] [address] [facility] [place] [address] * Basic metabolic panel (06/12/2024 11:38 AM INSTANT POTATO PROCESSING SUPERVISOR) [facility] Sodium 140 135 - 145 mmol/L Potassium, pl 4.9 3.3 - 4.9 mmol/L [facility] Chloride 105 97 - 110 mmol/L [facility] CO2 25 22 - 32 mmol/L [facility] Anion gap 10 2 - 15 mmol/L [facility] BUN 19 6 - 25 mg/dL [facility] Creatinine 1.26 0.80 - 1.30 mg/dL [facility] Glucose 92 70 - 199 mg/dL [facility] Comment: Interpretive Data Fasting glucose >/= 126 [...] 2022. Calcium 9.2 8.5 - 10.3 mg/dL [facility] Blood 06/12/2024 11:3 8 AM INSTANT POTATO PROCESSING SUPERVISOR 06/12/2024 11:38 AM INSTANT POTATO PROCESSING SUPERVISOR Anthony Espinosa MD LAB BLOOD ORDERABLES Susanna l Result Performing Organization Address City/[facility] Co de Phone Number [facility] [address] Department [place] [address] * ECG 12 lead (06/12/2024 11:23 AM INSTANT POTATO PROCESSING SUPERVISOR) 06/12/2024 11:2 4 AM INSTANT POTATO PROCESSING SUPERVISOR Narrative [facility] - 06/12/2024 8:04 PM INSTANT POTATO PROCESSING SUPERVISOR Vent Rate: 61 bpm RR Interval: 980 msec DC Interval: 139 msec QRS Duration: 92 msec QT Interval: 423 msec QTC Interval: 425 msec P-R-T [place]: 48 - 94 - 30 degrees IMPRESSION: SINUS RHYTHM BORDERLINE RIGHT AXIS DEVIATION LOW QRS VOLTAGE IN EXTREMITY LEADS BORDERLINE ECG Electronically Signed By: Tyree Montenegro [facility] Card us Valentine Smith NP ECG ORDERABLES Final Re sult Performing Organization Address [facility] Co de Phone Number [email or web address] [facility] * POCT lipid panel (06/11/2024 1:12 PM INSTANT POTATO PROCESSING SUPERVISOR) Cholesterol, POC 120 mg/dL HDL, POC 36 mg/dL Triglycerides, POC 145 mg/dL LDL Cholesterol POC 55 mg/dL Chol/HDL Ratio, POC 1.5 Non-HDL Cholesterol, POC 84 mg/dL Cholesterol Total, POC 120 mg/dL Capillary blood 06/11/2024 1 :12 PM INSTANT POTATO PROCESSING SUPERVISOR Leandro Hester MD POINT OF CARE TEST ORDERABLES Fi nal Result * PSA screen (07/12/2023 7:13 AM INSTANT POTATO PROCESSING SUPERVISOR) PSA 3.71 < OR = 4.00 ng/mL [facility] Comment: The total PSA value from this assay system is standardized against the WHO standard. The test result will be approximately 20% lower when compared to the equimolar-standardized total PSA ([place]). Comparison of serial PSA results should be interpreted with this fact in mind. This test was performed using the Siemens chemiluminescent method. Values obtained from different assay methods cannot be used interchangeably. PSA levels, regardless of value, should not be interpreted as absolute evidence of the presence or absence of disease. Blood 07/12/2023 7:13 AM INSTANT POTATO PROCESSING SUPERVISOR 07/12/2023 7:13 AM INSTANT POTATO PROCESSING SUPERVISOR Kaleb Hughes NP LAB BLOOD ORDERABLES F inal Result [facility] [address] [place] [address] * COLONOSCOPY REPORT (02/01/2016) Anatomical Region Laterality Modality Other Narrative 02/01/2016 Ordered by an unspecified provider. Result [facility] Historical Provider GI PROCEDURE ORDERABLES F inal [...] agrees with it. ACC# ??Date Time ??Exam [id number] October 18, 2015 08:30:[id number] Abd & Pelvis wwo cont [id number] October 18, 2015 08:30:00 [id number] 3-DRendering sep Modality EXAMINATION: ?? 1. CT [...] PITT M.D. on Oct 18 2015 10:48A [id number] Procedure Note Provider, MD Jenna - 09/26/2016 RUBI PITT M.D. MAHNAZ LANDRUM M.D. FINAL REPORT The radiology attending physician has personally reviewed this study, and has reviewed and/or edited this written report and agrees with it. ACC# Date Time Exam [id number] October 18, 2015 08:30:[id number] Abd & Pelvis wwo cont [id number] October 18, 2015 08:30:00 [id number] 3-DRendering sep Modality EXAMINATION: 1. CT UROGRAPHY [...] PITT M.D. on Oct 18 2015 10:48A [id number] us Historical Provider MD [facility] CT PROCEDURES Final R esult from Last 3 Months or Most Recently Relevant to Health Maintenance Insurance MEDICARE [facility] MEDICARE [facility] MEDICARE [facility] MEDICARE SUPPLEMENT [phone] (Home) [address] [place] [address] MEDICARE Advance Directives For more information, please contact: [phone] * Full Code (Latest Code Status on File) Date Activated Date Inactivated Comments 06/19/2024 12:48 PM 06/20/2024 7:44 PM * Full Code Date Activated Date Inactivated Comments 07/25/2020 7:54 AM 07/27/2020 7:32 PM * Full Code Date Activated Date Inactivated Comments 07/23/2020 6:59 PM 07/25/2020 7:54 AM Care Teams Pharmacy Technician Assistant Relationship Specialty Start Date End Date Quirino Recio MD [address] [facility] [address] [place] [address] PCP - General 09/01/16 Carlos Mari MD [address] [facility] [address] [place] [address] Consulting Physician General Surgery 07/27/20 [place] [address] [place] [id number] Consulting Physician Urology 06/20/24
--- OUTSIDE RECORDS SUMMARY | 2024-06-26 10:13 | XMS_ITS ---
Author Organization [facility] [facility] [place] [address] Address [address] [place] [address] Care Team Providers Care Activity Therapist Name Role Phone Quirino Recio MD Primary Care Provider Carlos Mari MD Unavailable Anthony Espinosa MD Unavailable Active Problems Problem Noted Date Diagnosed Date [...] (07/01/2020): Added automatically from request for surgery [id number] Assessment & Plan (07/26/2020 8:31 PM [employer]): Procedure(s): Laparoscopic Cholecystectomy with Cholangiograms 07/23/2020 1 Day Post-Op 07/24/2020 Elevated LFTs - trending upward - Dr. Hammonds consulted - ERCP for 07/25/2020 07/25/2020 2 Days Post Op ERCP Performed by Dr. Aliperti Impression: - Multiple very small (see photo) [...] nausea. Tolerating clears. Follow Coronary arteriosclerosis in [place] artery 02/23 Overview (09/07/2016): CAD in [place] artery Microscopic hematuria 09/03/2015 Hypertension 05/24/2012 Current Oncology Plans No current plan information found. Past Plans No past plan information found. Radiation Treatments * No radiation treatments are documented for this patient in [facility]. Treatments may have been administered in another system. Lifetime Dose Tracking * Chemical Lifetime Dose Automatic Entry Manual Entr y Fluoro Time 2.21 minutes 2.21 minutes 0 minutes Air kerma at the reference point (Ka,r) 75 mGy 7 5 mGy 0 mGy
== END 2024-06-22 13:11 | disposition home or self-care (01) ==
PROVIDERS: Emergency Provider Preventive Medicine Aerospace Medicine; PCP Family Medicine
DX: T83.031A Leakage of indwelling urethral catheter, initial encounter (principal); R31.0 Gross hematuria; C61 Malignant neoplasm of prostate; Z90.79 Acquired absence of other genital organ(s); Y84.6 Urinary catheterization as the cause of abnormal reaction of the patient, or of later complication, without mention of misadventure at the time of the procedure
CPT/HCPCS: 99282